=== PATIENT | male | born 2000 | race African-American/Black ===

== ENCOUNTER 2023-02-27 18:48 | Emergency (ER) | payer OTHER, SELFPAY ==
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
--- NOTE | 2023-02-27 18:59 | ECG_ITS ---
Measurements Intervals [place] Rate: 68 P: 68 DC: 173 QRS: 81 QRSD: 99 T: 44 QT: 372 QTc: 396 Interpretive Statements SINUS RHYTHM POSSIBLE LEFT ATRIAL ENLARGEMENT [-0.1mV P-WAVE IN V1/V2] NONSPECIFIC ST & T-WAVE ABNORMALITY ST-ELEVATION, LIKELY EARLY REPOLARIZATION ABNORMAL ECG NO PREVIOUS ECG AVAILABLE FOR COMPARISON Electronically Signed On 02-28-2023 9:28:33 CDT by Shaw Wright M.D.
[2023-02-27 19:11] VITALS: BP 157/60; PULSE 70; RESP 16; TEMP 36.9; O2SAT 99
[2023-02-27 19:13] LABS: Basophils Percent Auto 0.3 % (0.2-1.2); Eosinophils Absolute Auto 0.1 K/mm3 (0-0.3); Eosinophils Percent Auto 2.4 % (0-4.4); Hematocrit 42.4 % (42.0-52.0); Hemoglobin 14.9 g/dL (14.0-18.0); Immature Granulocyte Absolute 0.01 K/mm3 (0.00-0.031); Immature Granulocyte Percent A 0.2 % (0-0.5); Lymphocytes Absolute Auto 0.99 K/mm3 (0.9-3.2); Lymphocytes Percent Auto 16.8 % (18.3-44.2); Mean Corpuscular HGB Conc 35.1 g/dl (32-36); Mean Corpuscular Hemoglobin 31.3 pg (26-34); Mean Corpuscular Volume 89.1 fl (80-100); Mean Platelet Volume 10.7 fl (7.4-10.4); Monocytes Absolute Auto 0.6 K/mm3 (0.1-0.6); Monocytes Percent Auto 9.9 % (2.6-8.5); Neutrophils Absolute Auto 4.1 K/mm3 (1.3-6.7); Neutrophils Percent Auto 70.4 % (45.5-73.1); Platelet Count Result 228 k/mm3 (150-375); Red Blood Count 4.76 M/mm3 (4.6-6.20); Red Cell Distribution Width 11.4 % (11.5-14.5); White Blood Count 5.9 K/mm3 (4.5-10.0)
[2023-02-27 19:23] LABS: INR 1.2; Prothrombin Time 15.9 Seconds (11.1-14.7)
[2023-02-27 19:24] LABS: Partial Thromboplastin Time 38.1 SECONDS (22.3-36.8)
[2023-02-27 19:35] LABS: Alanine Aminotransferase 22 U/L (6-50); Albumin Level 4.1 g/dL (3.5-5.1); Alkaline Phosphatase 61 U/L (38-126); Anion Gap 8 mmol/L (8-16); Aspartate Amino Transferase 20 U/L (17-59); Bilirubin,Total 0.9 mg/dL (0.2-1.3); Blood Urea Nitrogen 15 mg/dL (9-20); Calcium 8.8 mg/dL (8.4-10.2); Carbon Dioxide 25 mmol/L (22-30); Chloride 104 mmol/L (98-107); Estimated CRCL calculation 121 ml/min; Estimated Glomerular Filt Rate > 60; Glucose 114 mg/dL (65-110); Lipase 67 U/L (23-300); Potassium 3.5 mmol/L (3.4-5.0); Sodium 137 mmol/L (137-145)
[2023-02-27 19:55] LABS: Troponin I < 0.012 ng/mL (0.000-0.034)
[2023-02-27 21:23] VITALS: O2SAT 100
--- NOTE | 2023-02-27 22:04 | ED.CHESTPAIN ---
HPI - Chest Pain General Chief Complaint: Upper Respiratory Infection Stated Complaint: Chest pain/ sore throat Time Seen by Provider: 02/27/23 21:40 History of Present Illness HPI narrative: 22-year-old male present to the emergency department for evaluation of substernal chest pain. Patient reports at approximate 5:00 he had onset of sternal chest pain. Patient states he did have some associated shortness of breath. Patient states that he had no radiation of the pain to his neck or back. Patient states pain has improved. Patient does have hypertension and does take multiple medications for this. Related Data Allergies Allergy/AdvReac Type Severity Reaction Status Date / Time grass pollen Allergy Itching Verified 02/27/23 21:28 pollen extracts Allergy Itching Verified 02/27/23 21:28 Review of Systems Review of Systems: All systems reviewed & are unremarkable except as noted in HPI and below Exam Narrative: APPEARANCE: Well appearing, no pain, no distress, well-nourished. HEAD: normocephalic, atraumatic. EYES: PERRLA/EOMI, conjunctivae clear. NOSE: Normal no drainage NECK: Supple. No adenopathy, no masses. RESPIRATORY: Airway patent, respirations nonlabored. Clear to auscultation bilaterally, no rales, rhonchi, wheezing. CARDIOVASCULAR: Regular rate and rhythm without murmurs rubs or gallops. ABDOMINAL: Soft, nontender, nondistended, normal bowel sounds MUSCULOSKELETAL: Moves all extremities. Strength/ROM intact, No edema, No calf tenderness. Reproducible right sternal border tenderness to palpation NEURO: Alert. Cranial nerves II through XII intact. SKIN: Warm, dry. Normal Color Course Course Emergency Course: 22-year-old male present emergency department for evaluation of chest pain. Patient was afebrile with no leukocytosis and a stable hemoglobin. Patient had no significant abnormalities on his CMP and patient had negative serial troponins. Patient was positive for COVID. Patient had a negative D-dimer. Chest x-ray showed no acute cardiopulmonary abnormality. EKG showed no evidence of acute STEMI. Patient did feel improved with treatment. Patient was updated the results of his work-up. Low concern for pulm embolism or ACS. Suspect costochondritis versus pleurisy as the underlying etiology for the patient's pain. All questions concerns were addressed and patient was comfortable with the plan for discharge and close follow-up. Vital Signs Vital signs: Vital Signs Temperature 98.4 F 02/27/23 19:11 Pulse Rate 70 02/27/23 19:11 Respiratory Rate 16 02/27/23 19:11 Blood Pressure 157/60 H 02/27/23 19:11 Pulse Oximetry 99 02/27/23 19:11 Temperature 98.4 F 02/27/23 19:11 Pulse Rate 76 02/28/23 00:40 Respiratory Rate 22 H 02/28/23 00:40 Blood Pressure 140/81 02/28/23 00:40 Pulse Oximetry 100 02/28/23 00:40 Oxygen Delivery Room Air 02/27/23 21:23 MDM - Chest Pain Differential Diagnosis Differential diagnosis: Likely pneumothorax, atypical chest pain, costochondritis and chest pain Lab Data Attestation: I reviewed the patient's lab results. 02/27/23 19:07 02/27/23 19:07 Labs: Lab Results 02/27/23 02/27/23 02/27/23 Range/Units 19:07 22:23 22:32 WBC 5.9 (4.5-10.0) K/mm3 RBC 4.76 (4.6-6.20) M/mm3 Hgb 14.9 (14.0-18.0) g/dL Hct 42.4 (42.0-52.0) % MCV 89.1 (80-100) fl MCH 31.3 (26-34) pg MCHC 35.1 (32-36) g/dl RDW 11.4 L (11.5-14.5) % Plt Count 228 (150-375) k/mm3 MPV 10.7 H (7.4-10.4) fl Immature Gran % (Auto) 0.2 (0-0.5) % Neut % (Auto) 70.4 (45.5-73.1) % Lymph % (Auto) 16.8 L (18.3-44.2) % [place] % (Auto) 9.9 H (2.6-8.5) % Eos % (Auto) 2.4 (0-4.4) % Baso % (Auto) 0.3 (0.2-1.2) % Lymph # (Auto) 0.99 (0.9-3.2) K/mm3 [place] # (Auto) 0.6 (0.1-0.6) K/mm3 Eos # (Auto) 0.1 (0-0.3) K/mm3 Baso # (Auto) 0.0 (0.0-0.1) K/mm3 Abs Immat Gran (auto)
[2023-02-27] MEDS: KETOROLAC 15 MG/ML VIAL (*BKC) IV PUSH (22:31)
[2023-02-27 23:03] LABS: Strep Group A RT-PCR NOT DETECTED (Negative)
[2023-02-27 23:07] LABS: D Dimer < 0.27 ug/mL (<0.48)
[2023-02-27 23:14] LABS: Influenza A QL RT-PCR Negative (Negative); Influenza B QL RT-PCR Negative (Negative); RSV RNA, RT-PCR Negative (Negative); SARS-CoV-2 RNA PCR Positive (Negative)
[2023-02-27 23:51] LABS: Troponin I < 0.012 ng/mL (0.000-0.034)
[2023-02-28 00:40] VITALS: BP 140/81; PULSE 76; RESP 22; O2SAT 100
== END 2023-02-28 00:41 | disposition home or self-care (01) ==
PROVIDERS: Emergency Medicine; Emergency Provider Emergency Medicine
DX: U07.1 COVID-19 (principal); R07.2 Precordial pain; R94.31 Abnormal electrocardiogram [ECG] [EKG]
CPT/HCPCS: 36415; 71046; 80053; 83690; 84484; 85025; 85380; 85610; 85730; 87637; 87651; 93005; 96374; 99284; J1885

== ENCOUNTER 2023-10-04 18:25 | Emergency (ER) | payer OTHER, SELFPAY ==
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
[2023-10-04 18:30] VITALS: BP 152/74; PULSE 68; RESP 16; TEMP 36.6; O2SAT 98
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
== END 2023-10-04 20:28 | disposition home or self-care (01) ==
PROVIDERS: Emergency Provider Physician Assistant
DX: S20.211A Contusion of right front wall of thorax, initial encounter (principal); V43.52XA Car driver injured in collision with other type car in traffic accident, initial encounter
CPT/HCPCS: 71046; 99283

== ENCOUNTER 2024-07-31 00:31 | Emergency (ER) | payer OTHER, SELFPAY ==
--- NOTE | ~2024-07-31 | XR_ITS ---
Portable chest x-ray Comparison: 10/04/2023 Clinical History: Chest pain Findings: Lungs are clear, without focal consolidation or pleural effusion. Cardiomediastinal silho uette is stable. Bones and soft tissues are unremarkable. Impression: Normal chest Reviewed, dictated and finalized at [facility]. Impression: Normal chest
--- NOTE | ~2024-07-31 | CT_ITS ---
CT of the Abdomen and Pelvis: Indication: Abdominal pain Technique: 2.5 mm axial scans were obtained through the abdomen and pelvis following intravenous adm inistration of 100 cc of Omnipaque 350. Dose reduction technique was used on this scan by utilizing a utomated exposure control and iterative reconstruction technique. The dose-length product (DLP) was 7 31.95 mGy-cm. Findings: Scans through the lung bases are unremarkable. The liver, spleen, pancreas, gallbladder, adrenals and kidneys are within normal limits. No evidence of aortic aneurysm. No lymphadenopathy. No bowel obstruction or bowel wall thickening. There is no evidence to suggest acute appendicitis. Images through the pelvis were performed. Urinary bladder unremarkable. No pelvic mass seen. No ascit es. Impression: No significant abnormalities seen. Reviewed, dictated and finalized at location . Impression: No significant abnormalities seen.
--- NOTE | 2024-07-31 00:32 | ECG_ITS ---
Test Date: 2024-07-31 00:45:50 Measurements Intervals [place] Rate: 78 P: 54 GA: 199 QRS: 70 QRSD: 96 T: 29 QT: 340 QTc: 390 Interpretive Statements SINUS RHYTHM WITH SINUS ARRHYTHMIA NONSPECIFIC T-WAVE ABNORMALITY No previous ECG available for comparison Electronically Signed On 07-31-2024 14:49:43 CDT by Paul Jones M.D.
--- OUTSIDE RECORDS SUMMARY | 2024-07-31 00:34 | XMS_ITS | Clinical Summary ---
Author Organization [facility] Address [facility] [address] [place] [address] Care Team Providers Care Floor Installation Mechanic Name Role Phone None, Provider MD Primary Care Provider Unavaila ble Allergies Active Allergy Reactions Criticality Noted Date Comments Cephalexin Hives,Throat swelling 12/23/2020 Medications amLODIPine 10 MG tablet Take 10 mg by mouth daily. 08/02/2020 Active lisinopril 5 MG tablet TAKE 1 TABLET BY MOUTH EVERY DAY FOR 20 DAYS 05/29/2020 Active methocarbamol 750 MG Tab Take 1 tablet (750 mg total) by mouth 3 (three) times daily as needed. 21 tablet 11/23/2021 Active diclofenac EC 75 MG tablet Take 1 tablet (75 mg total) by mouth 2 (two) times daily. 28 tablet 11/23/2021 Active lidocaine 5 % Place 1 patch onto the skin daily. Remove & Discard patch within 12 hours or as directed by 14 patch 11/23/2021 Active Active Problems No known active problems Immunizations Name Administration Dates Next Due Tdap (Boostrix) 10/23/2021 Family History Medical History Relation Comments Anxiety Father Cancer Mother Heart Disease Mother Kidney Disease Mother Relation Status Comments Father Alive Mother Social History Tobacco Use Types Packs/Day Years Used Date Smoking Tobacco: Never Smokeless Tobacco: Never Alcohol Use Standard Drinks/Week Comments No 0 (1 standard drink = 0.6 oz pur e alcohol) AUDIT-C Answer Date Recorded Frequency of Alcohol Consumption Never 12/28/2018 Average Number of Drinks Not on file 019 Frequency of Binge Drinking Not on file 12/2018 Sex and Gender Information Value Date Recorded Sex Assigned at Not on file Legal Sex Male 6:57 PM CDT Gender Identity Not on file Sexual Orientation Not on file Last Filed Vital Signs Vital Sign Reading Time Taken Comments Blood Pressure 157/62 11/29/2022 2:00 AM CDT Pulse 72 11/29/2022 2:00 AM CDT Temperature 36.9 C (98.5 F) 11/29/2022 2:00 AM CDT Respiratory Rate 18 11/29/2022 2:00 AM CDT Oxygen Saturation 99% 11/29/2022 2:00 AM CDT Inhaled Oxygen Concentration - - Weight 79.2 kg (174 lb 9.7 oz) 11/29/2022 2:00 A M CDT Height 180.3 cm (5' 11 ) 11/29/2022 2:00 AM CDT Body Mass Index 24.35 11/29/2022 2:00 AM CDT Plan of Treatment Health Maintenance Due Date Last Done Comments Annual Physical 2004 Hepatitis C 09/05/2019 COVID-19 Vaccine ( season) 2024 01/15/2021, 12/18/2020 Influenza Adult (#1) 2024 DTaP, Tdap and Td Vaccines (9 - Td or Tdap) 10/24/2031 10/23/2021, 09/03/2016, 10/24/2013, Additional history exists Hepatitis B Vaccines Completed 08/28/2004, 08/28/2004, 11/20/2002, Additional history exists HPV Vaccines Completed 01/23/2019, 12/21, 10/24/2013 Meningococcal Vaccine Completed 01/23/2019, 018 Meningococcal B Vaccine Completed 04/22/2020, 03/17 Pneumococcal Vaccine: Pediatrics (0 to 5 Years) and At-Risk Patients (6 to 64 Years) Aged Out No longer eligible based on patient's age to complete this topic RSV Immunizations Under 20 Months Aged Out No longer eligible based on patient's age to complete this topic Insurance [facility] YANCEY YANCEY Advance Directives Documents on File Type Date Recorded Patient Medical Assistant Per Diem Expl anation Legal Documents 04/30/2022 3:33 PM COMPLET ED ATTNY REQ Care Teams Floor Installation Mechanic Relationship Specialty Start Date End Date None, Provider, PCP - General 02/28/22
--- OUTSIDE RECORDS SUMMARY | 2024-07-31 00:34 | XMS_ITS | Clinical Summary ---
Author Organization [facility] Address [address] [place] [address] Care Team Providers Care Carpenter And Joiner Name Role Phone Lashawn Cheung MD Unavailable [phone] Mony Kilpatrick MD Primary Care Provider [phone] Source Comments [facility],non-owned Affiliates and Associated Physician Practices is amultiple site organization consisting of ambulatory clinics and hospital sitesin [place], [place], [place] and [place]. This disclosure is being madepursuant to the Care Everywhere program and may not contain all information available regarding this patient. Last updated 18.[facility] Allergies No known active allergies Medications * Be aware that medications may not be up to date on this document. Alwaysverify current medications with the patient. Medication Sig Dispensed Refills Start Date End Date Status acetaminophen (TYLENOL) 325 MG tablet Take 500 mg by mouth every 4 hours as needed for Fever or Pain Maximum allowable Acetaminophen amount = 4 Grams (4000 mg) / 24 hours. Active naproxen sodium (ALEVE) 220 MG tablet Take 220 mg by mouth 2 times daily Active amLODIPine (NORVASC) 10 MG tablet Take 10 mg by mouth once daily 06/13/2020 Active Active Problems Problem Noted Date Diagnosed Date Well child check 01/23/2019 Overview (01/23/2019): 18 yo 01/23/19 Patient's mother is 01/23/2019 Overview (01/23/2019): 01/23/19 - Recently of brain aneurysm, hx of cysts on kidney. Referral placed to Nephrology for evaluation of polycystic kidney disease Seasonal allergies Overview (01/23/2019): Benadryl prn Immunizations Name Administration Dates Next Due DTP 02/15/2007, 6,08/28/2004,11/20,01/18/2002,2001 HEP A PEDS 2 DOSE 12/14/2017,10/24/2013 HEP B VACCINE, PED/ADOL 08/28/2004,11/20,2001,09/05 HIB-PRP-T 4 DOSE 08/28/2004,01/18/2002, 2 Human Papilloma Virus Nine[place] lent Vaccine 01/23/2019 Human Papilloma Virus Vaccine 01/02/2014, 014 MENINGOCOCAL MENINGITIS 12/14/2017 MENINGOCOCCAL CONJUGATE (MCV4P) 01/23/2019 MMR 12/09/2005,08/28/2004 MMRV 02/15/2007 POLIO IPV 02/15/2007, 6,08/28/2004,11/20,01/18/2002,2001 TDAP (7yrs+) 09/03/2016,10/24/2013 VARICELLA 01/02/2017,03/19/2005 Family History Medical History Relation Name Comments Other Mother brain aneurysm Other - Genitourinary Mother cysts on kidney Relation Name Status Comments Mother Social History Tobacco Use Types Packs/Day Years Used Date Smoking Tobacco: Never Smokeless Tobacco: Never Alcohol Use Standard Drinks/Week Comments No 0 (1 standard drink = 0.6 oz pur e alcohol) Sex and Gender Information Value Date Recorded Sex Assigned at Not on file Gender Identity Not on file Sexual Orientation Not on file Last Filed Vital Signs Vital Sign Reading Time Taken Comments Blood Pressure 144/80 07/10/2020 8:48 AM CREATIVE COORDINATOR Pulse 60 07/10/2020 8:48 AM CREATIVE COORDINATOR Temperature 36.5 C (97.7 F) 07/10/2020 8:48 AM CREATIVE COORDINATOR Respiratory Rate 14 07/18/2019 10:45 AM CREATIVE COORDINATOR Oxygen Saturation 100% 07/10/2020 8:48 AM CREATIVE COORDINATOR Inhaled Oxygen Concentration - - Weight 82.1 kg (181 lb) 07/10/2020 8:48 AM CREATIVE COORDINATOR Height 185.4 cm (6' 1 ) 07/10/2020 8:48 AM CREATIVE COORDINATOR Body Mass Index 23.88 07/10/2020 8:48 AM CREATIVE COORDINATOR Plan of Treatment Health Maintenance Due Date Last Done Comments HIV SCREENING 2016 MENINGOCOCCAL (Group B) VACCINE (1 of 2 - Standard) 2017 HEPATITIS C SCREENING 08/31/2019 COVID-19 VACCINE ( - 2023- season) 2024 INFLUENZA VACCINE (#1) 2024 DEPRESSION SCREENING 05/23/2024 DTAP/TDAP/TD VACCINES (8 - Td or Tdap) 09/03/2026 09/03/2016, 10/24/2013, 02/15/2007, Additional history exists ZOSTER VACCINE (1 of 2) 09/05/2051 HEPATITIS B VACCINE Completed 08/28/2004, 11/20/2002, 2001, Additional history exists HIB VACCINE Completed 08/28/2004, 12/22, 2001 HPV VACCINE Completed 01/23/2019, 12/21, 10/24/2013 MENINGOCOCCAL VACCINE Completed 01/23/2019, 018 PNEUMOCOCCAL VACCINE Aged Out No long er eligible based on patient's age to complete this topic Goals Goal Patient Goal Type Associated Problems Recent Progress Patient-Stated? Author Use safety retraint in car Lifestyle On track( 019 8:46 AM CDT) Marcia Cota MA Care Teams Carpenter And Joiner Relationship Specialty Start Date End Date Mony Kilpatrick MD [address] [place] [phone] PCP - General 09/29/20 Lashawn Cheung MD [address] [place] [phone] Pediatrics 01/23/19
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
--- OUTSIDE RECORDS SUMMARY | 2024-07-31 00:34 | XMS_ITS | Referral Summary ---
Author Organization [facility] Address [address] [place] [address] Care Team Providers Care Head Machinist Name Role Phone Lashawn Cheung MD Unavailable [phone] Mony Kilpatrick MD Primary Care Provider [phone] Source Comments [facility],non-owned Affiliates and Associated Physician Practices is amultiple site organization consisting of ambulatory clinics and hospital sitesin [place], [place], [place] and [place]. This disclosure is being madepursuant to the Care Everywhere program and may not contain all information available regarding this patient. Last updated 18.[facility] Allergies No known active allergies Medications * [...] 02/15/2007, 6,08/28/2004,11/20,01/18/2002,2001 TDAP (7yrs+) 09/03/2016,10/24/2013 VARICELLA 01/02/2017,03/19/2005 Social History Tobacco Use Types Packs/Day Years [...] Comments Blood Pressure 144/80 07/10/2020 8:48 AM PAYLOADER MACHINE OPERATOR Pulse 60 07/10/2020 8:48 AM PAYLOADER MACHINE OPERATOR Temperature 36.5 C (97.7 F) 07/10/2020 8:48 AM PAYLOADER MACHINE OPERATOR Respiratory Rate 14 07/18/2019 10:45 AM PAYLOADER MACHINE OPERATOR Oxygen Saturation 100% 07/10/2020 8:48 AM PAYLOADER MACHINE OPERATOR Inhaled Oxygen Concentration - - Weight 82.1 kg (181 lb) 07/10/2020 8:48 AM PAYLOADER MACHINE OPERATOR Height 185.4 cm (6' 1 ) 07/10/2020 8:48 AM PAYLOADER MACHINE OPERATOR Body Mass Index 23.88 07/10/2020 8:48 AM PAYLOADER MACHINE OPERATOR Plan of Treatment Not on file Goals Goal Patient Goal Type Associated Problems Recent Progress Patient-Stated? Author Use safety retraint in car Lifestyle On track( 019 8:46 AM CDT) Marcia Cota, QASIM Care Teams Head Machinist Relationship Specialty Start Date End Date Mony Kilpatrick MD [address] [place] [address] PCP - General 09/29/20 Lashawn Cheung MD [address] [place] [address] Pediatrics 01/23/19
--- OUTSIDE RECORDS SUMMARY | 2024-07-31 00:34 | XMS_ITS | Data Portability ---
Author Organization [facility] Address [address] [place] [address] Care Team Providers Care Title Processor Name Role Phone YENI PRADHAN Primary Care Provider RENARD MULLIGAN Night Clerk Auditor JEREMY FREGOSO Night Clerk Auditor Assessment Encounter Date Assessment Date Assessment LastModified by Organization Details LastModified Time 01/24/2024 01/24/2024 23 yo M with h/o HTN, strong family h/o PCKD in his mother is here for HTN f/u with medication change. [email or web address] Not available 01/26/2024 10:21:19 03/13/2024 03/13/2024 23-year-old damon silverio who has a history of hypertension doing very well. He has no symptoms of chest pain and shortness of breath. He is tolerating all his medications. Blood pressure is in acceptable range. I will check a basic metabolic profile today and repeat again in 6 months. I reminded him about the importance of controlling his blood pressure explained him the risks associated with uncontrolled high blood pressure. He understands. I will see him in 6 months. March 13, 2024: Hypertension, blood pressure is well-controlled I will continue with amlodipine 10 mg daily along with hydrochlorothiazide 25 mg a day and losartan 100 mg p.o. daily. I will check a basic metabolic profile. I will see him again in 6 months. [email or web address] Not available 03/13/2024 10:28:00 05/07/2024 05/07/2024 23 yo M with h/o HTN, strong family h/o PCKD in his mother is here for HTN f/u [email or web address] Not available 05/09/2024 14:56:57 Plan of Treatment Reminders Order Date Submit Date Provider Last Modified By Organization Details Last Modified Time Details Appointments ANY 15 2024 09:15A M Leobardo sullivan MD Not available Not available Not available Lab microa lbumin /creat inine, mass ratio, urine 2023 024 jilalexa [facility], [address], [address], [place], [address], 07/17/2024 14:34:24 BMP, serum or plasma 2023 025 benjamin [facility], [address], [address], [place], [address], 03/13/2024 10:22:36 Referral None record ed. Procedures None record ed. Surgeries None record ed. Imaging None record ed. Medication Orders amlodi pine 10 mg tablet 2023 024 [facility]armacy #[id number], [address] [place], [address], 05/07/2024 17:58:18 hydroc hlorot hiazid e 25 mg tablet 2023 024 [facility]/Pharmacy #[id number], [address] [place], [address], 12/19/2023 17:10:29 losart an 100 mg tablet 2023 024 [facility]/Pharmacy #[id number], [address] [place], [address], 05/07/2024 17:58:14 Patient TargetsNo targets recorded. Patient Instructions Encounter Date Encounter Id Patient Instructions Last Modified By Organization Details Last Modified Time 12/02/2023 [id number] I was present and available in the family medicine clinic to discuss the patient's care during the appointment and the case was discussed with me. I agree with the resident's assessment and plan as documented. Records were located after visit and imaging suggests no significant YOBANI 06/2023 . Not clear if pt needs reeval for 2/2 HTN or reassess risks for essential HTN and education about treatment. HL [email or web address] Not available 12/08/2023 21:59:25 12/19/2023 [id number] I was present and available in the Family Medicine clinic to discuss the patient's care during the time of the appointment. All labs/imaging/con sults/prescripti ons to be followed by the resident rendering services on day of encounter. I agree with the resident's assessment and plan as documented with the following addendum: None. Emery Svitlana [email or web address] Not available 12/23/2023 15:04:54 01/24/2024 [id number] I was present and available in the Family Medicine clinic to discuss this patient's care for the duration of the appointment. I agree with the resident's assessment and plan as documented with the following addendum: Reviewed records, including the CTA of abdomen pelvis in 06/29/2023, which was clinically negative for any signs of renal artery stenosis. Recommend f/u with nephrology and cardiology. Dr. Jamir Torres MD Attending Physician, [facility]. [email or web address] Not available 01/31/2024 11:27:06 05/07/2024 [id number] I was present and available in the family medicine clinic to discuss the patient's care during the appointment and the case was discussed with me. I agree with the resident's assessment and plan as documented. HL [email or web address] Not available 05/15/2024 07:08:51 Reason for Referral None Reported. Results Created Date Observation Date Name Description Value Unit Range Abnormal Flag Note LastModifiedBy Organization Detail LastModifiedTime 03/13/2003/13/2024 BASIC METAB OLIC PANEL sodium 141 mmol/ L 134-14 4 normal Not Available [facility] (Lab) [address], [place], [address], 03/13/2024 21:32:41 03/13/2003/13/2024 BASIC METAB OLIC PANEL potassium 4.7 mmol/ L 3.5-5. 2 normal Not Available [facility] (Lab) [address] [place], [address], 03/13/2024 21:32:41 03/13/2003/13/2024 BASIC METAB OLIC PANEL chloride 105 mmol/ L 96-106 normal Not Available [facility] (Lab) [address] [place], [address], 03/13/2024 21:32:41 03/13/20 24 03/13/2024 BASIC METAB OLIC PANEL carbon dioxide 29 mmol/ L 20-29 normal Not Available [facility] (Lab) [address] [place], [address], 03/13/2024 21:32:41 03/13/20 24 03/13/2024 BASIC METAB OLIC PANEL anion gap 12.0 mmol/ L Not Available [facility] (Lab) [address] [place], [address], 03/13/2024 21:32:41 03/13/20 24 03/13/2024 BASIC METAB OLIC PANEL blood urea nitrogen 11 mg/dL 6-20 normal Not Available [facility] (Lab) [address] [place], [address], 03/13/2024 21:32:41 03/13/20 24 03/13/2024 BASIC METAB OLIC PANEL creatinine 0.81 mg/dL 0.76-1 .27 normal Not Available [facility] (Lab) [address] [place], [address], 03/13/2024 21:32:41 03/13/20 24 03/13/2024 BASIC METAB OLIC PANEL glomerular filtration rate 128 mL/mi n/1 Not Available [facility] (Lab) [address] [place], [address], 03/13/2024 21:32:41 03/13/20 24 03/13/2024 BASIC METAB OLIC PANEL BUN creatinine ratio 14 9-20 normal Not Available [facility] (Lab) [address], [place], [address], 03/13/2024 21:32:41 03/13/2003/13/2024 BASIC METAB OLIC PANEL glucose 96 mg/dL 70-99 normal Not Available [facility] (Lab) [address] [facility], [place], [address], 03/13/2024 21:32:41 03/13/2003/13/2024 BASIC METAB OLIC PANEL osmolality calculated 281 275-29 5 normal Not Available [facility] (Lab) [address] [facility], [place], [address], 03/13/2024 21:32:41 03/13/2003/13/2024 BASIC METAB OLIC PANEL calcium 9.9 mg/dL 8.7-10 .2 normal Not Available [facility] (Lab) [address] [facility], [place], [address], 03/13/2024 21:32:41 Result Notes None recorded. Problems Name Problem SNOMED Code Status Onset Date Resolution Date Notes Provider Name and Address Organization Details Recorded Time Hypertens arnoldo disorder 30377484 Active 2019 Monystar Camachoqui null, [place] [facility] 0 16:27:27 Stenosis of left renal artery 128112109109 97402 Active 2020 Jatinder Neftaly null, [place] [facility] 2 10:07:34 Family history of Polycysti c kidney 280355034 Active [address]23 [address] Villareal nephrolog y in 2020 due to strong family h/o PCKD and US kidney was normal. JAMIR Antunez MD Attn: [employer],[address], [place], [address], [place] [facility] 4 10:29:44 Essential hypertens ion 43156394 Active 2023 Roque Kennedy MA null, [place] [facility] 4 11:45:02 Problem Notes None recorded. Procedures Surgical History Date Name Laterality Status Provider Name and Address Organization Details Recorded Time 05/17/2023 Shave Biopsy completed YENI PRADHAN DO Attn: Accounting,[address], [place], [address], [facility] 05/18/2023 16:43:41 Imaging Results None recorded. Procedure Notes None recorded. Medical Equipment None Reported. Allergies Allergen ID Allergen Name Allergen Category Reaction Reaction Severity Criticality Documentation Date Start Date Code Code System Note Provider Name and Address Organization Details Recorded Time 594111 cephalexi n medicatio n anaphylax is severe high 09/09/2021 2231 RxNorm Not Available Not Available Not Available 294969 Substance with sulfonami de structure and antibacte rial mechanism of action (substanc e) medicatio n rash moderate Not available 09/09/2021 55833 8003 SNOMED Not Available Not Available Not Available Medications Name Sig Start Date Stop Date Status Note LastModified by Organization Details LastModified Time losartan 50 mg tablet TAKE 1 TABLET BY MOUTH EVERY DAY 09/05 completed Not Available Not Available Not Available amoxicillin 500 mg capsule TAKE 1 CAPSULE BY MOUTH TWICE A DAY 08/10 completed Not Available Not Available Not Available clindamycin HCl 300 mg capsule TAKE 1 CAPSULE BY MOUTH THREE TIMES A DAY 01/12 completed Not Available Not Available Not Available ibuprofen 800 mg tablet 07/22 completed Not Available Not Available Not Available fluconazole 150 mg tablet TAKE 1 TABLET BY MOUTH FOR ONE DOSE 09/09 completed Not Available Not Available Not Available hydrocodone 5 mg-acetamin ophen 325 mg tablet TAKE 1 TABLET BY MOUTH EVERY 6 HOURS NEEDED FOR PAIN 09/09 completed Not Available Not Available Not Available sulfamethox azole 800 mg-trimetho prim 160 mg tablet TAKE 1 TABLET BY MOUTH TWICE A DAY 08/10 completed Not Available Not Available Not Available tramadol 50 mg tablet TAKE 0.5 TABLETS EVERY 8 HOURS BY ORAL ROUTE NEEDED FOR 7 DAYS. 03/13 completed Not Available Not Available Not Available acetaminoph en 500 mg tablet TAKE 2 TABLETS BY MOUTH EVERY 8 HOURS NEEDED FOR PAIN 09/09 completed Not Available Not Available Not Available methocarbam ol 750 mg tablet TAKE 1 TABLET BY MOUTH 3 TIMES DAILY NEEDED. 01/12 completed Not Available Not Available Not Available amlodipine 10 mg tablet TAKE 1 TABLET BY MOUTH EVERY DAY 05/07 completed Not Available Not Available Not Available cephalexin 500 mg capsule TAKE 1 CAPSULE BY MOUTH 4 TIMES A DAY FOR 7 DAYS 09/09 completed Not Available Not Available Not Available triamcinolo ne acetonide 0.1 % topical ointment 1 APPLICATI ON ON THE SKIN TWICE A DAY APPLY TO AFFECTED AREA ON RIGHT THIGH TWICE DAILY FOR 7 DAYS 09/09 completed Not Available Not Available Not Available lidocaine 5 % topical patch PLACE 1 PATCH ONTO THE SKIN DAILY. REMOVE & DISCARD PATCH WITHIN 12 HOURS OR DIRECTED BY MD 08/10 completed Not Available Not Available Not Available losartan 25 mg tablet TAKE 1 TABLET BY MOUTH EVERY DAY 01/12 completed Not Available Not Available Not Available hydrochloro thiazide 12.5 mg capsule TAKE 1 CAPSULE BY MOUTH EVERY DAY 01/23 completed Not Available Not Available Not Available Banophen 25 mg capsule TAKE 1 CAPSULE BY MOUTH EVERY 4 HOURS 01/12 completed Not Available Not Available Not Available diclofenac sodium 75 mg tablet,edie yed release TAKE 1 TABLET BY MOUTH TWICE A DAY 01/12 completed Not Available Not Available Not Available lisinopril 5 mg tablet TAKE 1 TABLET BY MOUTH EVERY DAY FOR 20 DAYS 07/22 completed Not Available Not Available Not Available hydrochloro thiazide 25 mg tablet TAKE 1 TABLET BY MOUTH EVERY DAY active Not Available Not Available No t Available mupirocin 2 % topical ointment APPLY TO AFFECTED AREA 3 TIMES A DAY FOR 7 DAYS 09/05 completed Not Available Not Available Not Available levofloxaci n 500 mg tablet 07/22 completed Not Available Not Available Not Available methylpredn isolone 4 mg tablets in a dose pack TAKE 6 TABLETS ON DAY 1 DIRECTED ON PACKAGE AND DECREASE BY 1 TAB EACH DAY FOR A TOTAL OF 6 DAYS 09/09 completed Not Available Not Available Not Available ketoconazol e 2 % topical cream APPLY TO AFFECTED AREA EVERY DAY 09/09 completed Not Available Not Available Not Available losartan 100 mg tablet Take 1 tablet every day by oral route. 05/07 completed Not Available Not Available Not Available amoxicillin 875 mg-potassiu m clavulanate 125 mg tablet TAKE 1 TABLET (875 MG TOTAL) BY MOUTH 2 (TWO) TIMES DAILY FOR 7 DAYS. 09/09 completed Not Available Not Available Not Available azithromyci n 1 gram oral packet TAKE 1 PACKET BY ORAL ROUTE FOR 1 DAY. 09/05 completed Not Available Not Available Not Available hydrocortis one 1 % topical cream with perineal applicator APPLY TO AFFECTED AREA TWICE A DAY 09/09 completed Not Available Not Available Not Available cyclobenzap rine 5 mg tablet TAKE 1 TABLET 3 TIMES A DAY BY ORAL ROUTE. 10/10 completed Not Available Not Available Not Available tretinoin 0.05 % topical gel APPLY TO AFFECTED AREA EVERY DAY AT BEDTIME 09/05 completed Not Available Not Available Not Available Acne Medication 5 % topical gel APPLY TO AFFECTED AREA EVERY DAY 09/05 completed Not Available Not Available Not Available tramadol 25 mg tablet active Not Available Not Available No t Available Vitals Date Recorded Body height Body mass index (BMI) Body weight Heart rate Oxygen saturation Oxygen saturation in Arterial blood by Pulse oximetry Body temperature Systolic blood pressure Diastolic blood pressure Provider Name and Address Organization Details Last Updated DateTime 4 180.34 cm 27.2 kg/m2 99344.6 1 g 62 /min 98 % 98 % 97.6 [degF] 152 mm[Hg] 99 mm[Hg] Michelle Moss MA [facility] 4 16:37:05 Date Recorded Systolic blood pressure Diastolic blood pressure Provider Name and Address Organization Details Last Updated DateTime 12/02/2023 152 mm[Hg] 96 mm[Hg] YENI PRADHAN DO Attn: Accounting,[address] [place], [address], [facility] 12/02/2023 17:13:03 Date Recorded Body height Heart rate Oxygen saturation Oxygen saturation in Arterial blood by Pulse oximetry Body mass index (BMI) Body weight Body temperature Systolic blood pressure Diastolic blood pressure Provider Name and Address Organization Details Last Updated DateTime 4 180.34 cm 87 /min 97 % 97 % 28.2 kg/m2 44181.7 1 g 97.7 [degF] 145 mm[Hg] 71 mm[Hg] Michelle Moss MA [facility] 4 16:32:48 Date Recorded Body height Body mass index (BMI) Body weight Oxygen saturation Oxygen saturation in Arterial blood by Pulse oximetry Heart rate Systolic blood pressure Diastolic blood pressure Provider Name and Address Organization Details Last Updated DateTime 4 180.34 cm 27.4 kg/m2 92750.2 5 g 96 % 96 % 65 /min 166 mm[Hg] 82 mm[Hg] Cris Linda MA [facility] 4 11:21:10 Date Recorded Systolic blood pressure Diastolic blood pressure Provider Name and Address Organization Details Last Updated DateTime 01/24/2024 137 mm[Hg] 79 mm[Hg] Javed Lawler MD Attn: Accounting,[address] [place], [address], [facility] 01/24/2024 11:53:23 Date Recorded Body height Body mass index (BMI) Body weight Oxygen saturation Oxygen saturation in Arterial blood by Pulse oximetry Heart rate Systolic blood pressure Diastolic blood pressure Provider Name and Address Organization Details Last Updated DateTime 4 180.34 cm 28.8 kg/m2 79334.8 2 g 97 % 97 % 82 /min 132 mm[Hg] 84 mm[Hg] Mayte Reyna MA [facility] 4 10:14:17 Date Recorded Body height Body temperature Body mass index (BMI) Body weight Oxygen saturation Oxygen saturation in Arterial blood by Pulse oximetry Heart rate Systolic blood pressure Diastolic blood pressure Provider Name and Address Organization Details Last Updated DateTime 4 180.34 cm 98.3 [degF] 28.2 kg/m2 12453.7 1 g 99 % 99 % 65 /min 154 mm[Hg] 85 mm[Hg] Fransico Ivory MA [facility] 4 17:32:29 Date Recorded Systolic blood pressure Diastolic blood pressure Provider Name and Address Organization Details Last Updated DateTime 05/07/2024 144 mm[Hg] 89 mm[Hg] Ronnell Conley MD Attn: Accounting[address] [place], [address], [facility] 05/07/2024 17:48:45 Social History Question Answer Notes LastModified by Organizat ion Details LastModified Time Tobacco Smoking Status Never Smoker Janet Jacome MA null, [place] [facility] 03/17/2020 16:07:54 What Is Your Level Of Alcohol Consumption? None [email or web address] Information not available 10/15/2021 Do You Or Have You Ever Used E-cigarettes Or Vape? Never Used Electronic Cigarettes Information not available 03/17/2020 What Was The Date Of Your Most Recent Tobacco Screening? 03/13/2024 Information not available 03/13/2024 Do You Or Have You Ever Used Smokeless Tobacco? Never Used Smokeless Tobacco Information not available 03/17/2020 Do You Use Any Illicit Or Recreational Drugs? No [email or web address] Information not available 07/25/2020 Has Tobacco Cessation Counseling Been Provided? No Information not available 03/13/2024 Do You Or Have You Ever Used Any Other Forms Of Tobacco Or Nicotine? No [email or web address] Information not available 09/09/2021 Sex: Unknown Functional Status None recorded. Mental Status None recorded. Family History Relationship Description Onset Age of this Age Resolved Age Notes LastModified by Organization Details LastModified Time Father Hypertensive disorder [email or web address] Not available 02/21 16:25:59 Mother Hypertensive disorder [email or web address] Not available 02/21 16:26:06 Medical History No medical history recorded. Immunizations Vaccine Type Date Status Note Provider Nam e and Address Organization Details Recorded Time DTaP, unspecified formulation 2 completed Pippa Pate [place], [place] [facility] 05/05/2022 11:42:58 DTaP 2 argelia Pate [place] [facility] 05/05/2022 11:43:37 DTaP, unspecified formulation 3 QASIM Wilhelm, [place] [facility] 05/05/2022 11:43:59 DTaP-Hep B-IPV 5 argelia Pate [place] [facility] 05/05/2022 11:44:36 DTaP 6 QASIM [place] [facility] 05/05/2022 12:36:38 DTaP 7 argelia Pate [place] [facility] 05/05/2022 12:37:26 Hib (PRP-T) 2 completed Pippa Pate [place] [facility] 05/05/2022 12:39:36 Hib (PRP-T) 2 completed Pippa P[place] [facility] 05/05/2022 12:40:11 Hib (PRP-T) 5 completed Pippa P[place] [facility] 05/05/2022 12:41:00 Hep A, ped/adol, 2 dose 4 completed Pippa P[place] [facility] 05/05/2022 12:42:26 Hep A, ped/adol, 2 dose 8 completed Pippa P[place] [facility] 05/05/2022 12:42:43 Hep B, adolescent or pediatric 2 completed Pippa P[place] [facility] 05/05/2022 12:43:30 Hep B, adolescent or pediatric 2 completed Pippa P[place] [facility] 05/05/2022 12:44:01 Hep B, adolescent or pediatric 3 completed Pippa P[place] [facility] 05/05/2022 12:44:30 HPV, quadrivalent 4 completed Pippa P[place] [facility] 05/05/2022 12:45:59 HPV, quadrivalent 4 completed Pippa P[place] [facility] 05/05/2022 12:46:36 HPV9 9 completed Pippa P[place] [facility] 05/05/2022 12:47:36 MMR 5 completed Pippa P[place] [facility] 05/05/2022 12:48:45 MMRV 7 completed Pippa P[place] [facility] 05/05/2022 12:49:37 meningococcal MCV4P 8 completed Pippa P[place] [facility] 05/05/2022 12:51:42 meningococcal MCV4P 9 completed Pippa P[place] [facility] 05/05/2022 12:52:37 IPV 2 completed Pippa P[place] [facility] 05/05/2022 12:53:34 IPV 2 completed Pippa P[place] [facility] 05/05/2022 12:53:53 IPV 3 completed Pippa P[place] [facility] 05/05/2022 12:54:57 IPV 6 completed Pippa P[place] [facility] 05/05/2022 12:55:43 IPV 7 completed Pippa P[place] [facility] 05/05/2022 12:56:29 Tdap 4 completed Pippa P[place] [facility] 05/05/2022 13:01:12 Tdap 7 argelia Pate [place] [facility] 05/05/2022 13:02:06 Tdap 2 completed Pippa P[place] [facility] 05/05/2022 13:03:03 varicella 5 completed Pippa P[place] [facility] 05/05/2022 13:03:44 varicella 4 completed Pippa P[place] [facility] 05/05/2022 13:06:24 varicella 7 argelia P[place] [facility] 05/05/2022 13:06:59 COVID-19, mRNA, LNP-S, bivalent, PF, 50 mcg/0.5 mL or 25mcg/0.25 mL dose 1 argelia P[place] [facility] 05/05/2022 13:08:04 COVID-19, mRNA, LNP-S, bivalent, PF, 50 mcg/0.5 mL or 25mcg/0.25 mL dose 1 completed Pippa P[place] [facility] 05/05/2022 13:08:40 meningococcal B, OMV 0 completed Pam Serna [place] [facility] 03/17/2020 17:10:49 meningococcal B, OMV 0 completed Pam Serna [place] [facility] 04/22/2020 12:25:46 Past Encounters Encounter ID Performer Location Encounter Start Date Encounter Closed Date Diagnosis/Indication Diagnosis SNOMED-CT Code Diagnosis ICD10 Code Diagnosis Note [id number] [facility] [address] [facility] [address] [place] [address] 03/17/2020 15:44:10 03/18/2020 10:35:27 Increased blood pressure 83609640 R03.0 BP 178/68 today.Per AAFP guidelines will evaluate for secondary causes of HTN including fibromuscu lar dysplasia of the renal artery, hyperaldos teronism, pheochromc ytoma, hyperthyro idism, obstructiv e sleep apnea, [place] syndrome (no cushingoid appearance ), -Check BMP, lipid panel, ACR, A1c, TSH EKG -BMI: 24.2 -Discussed lifestyle modificati on including recommende d diet and exercise -Smoking status: non-smoker -Discussed gender appropriat e alcohol consumptio n -Will initiate medication s once labs are reviewed Active or passive immunization 142058443 Z23 [id number] Mony Kilpatrick [facility] [address] [facility] [address] [place] [address] 04/22/2020 12:03:22 04/24/2020 09:59:45 Active or passive immunization 616952245 Z23 [id number] Annie Rubina [facility] [address] [facility] [address] [place] [address] 05/29/2020 15:14:06 05/30/2020 10:34:27 Renovascular hypertension 553527326 I15.0 Chronic, uncontroll edRenal U/S from 04/29/2020 notable for >60% stenosis of proximal renal artery.Con sistent with renovascul ar HTN (fibromusc ular dysplasia vs atheroscle rosis)- Referral to nephrology pending, phone number provided to patient and advised to contact clinic if he is not able to schedule an appointmen t- Will initiate treatment with lisinopril 5 mg for BP control- Follow-up in 2 weeks for BP check 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 Patient reports FH of renal cysts- Renal US ordered to rule out PKD [id number] Esau Dhillon MD [place] [address] [address] [address] 06/13/2020 11:43:34 06/16/2020 07:15:34 Renovascular hypertension 549033903 I15.0 Chronic, uncontroll edRenal U/S from 04/29/2020 notable for >60% stenosis of proximal renal artery.Con sistent with renovascul ar HTN (fibromusc ular dysplasia vs atheroscle rosis)- Referral to nephrology placed, appointmen t scheduled for August- SInce patient will be stented for a few months, will d/c lisinopril to avoid renal damage and initiate amlodipine - Follow-up in 2 weeks for BP check 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 [id number] 05923 Q61.00 Patient reports FH of renal cysts- Renal US ordered to rule out PKD [id number] Esau Dhillon MD [facility] [address] [address] 06/27/2020 14:26:35 06/30/2020 07:29:04 Renovascular hypertension 447169920 I15.0 Chronic, uncontroll edRenal U/S from 04/29/2020 notable for >60% stenosis of proximal renal artery.Con sistent with renovascul ar HTN (fibromusc ular dysplasia vs atheroscle rosis)- Referral to nephrology placed, appointmen t scheduled for 09/09/2020- Continue amlodipine 10 mg- f/u after nephrology work-up [id number] MD Anuj Molina [address] [facility] [address] [place] [address] 07/31/2020 17:02:14 08/05/2020 08:59:38 Hypertensive disorder 58491953 I10 Chronic, uncontroll ed Renal U/S from 04/29/2020 notable for >60% stenosis of proximal renal artery (per flow criteria) Consistent with renovascul ar HTN (fibromusc ular dysplasia vs atheroscle rosis) - Referral to nephrology placed, appointmen t scheduled for 09/09/2020 - Continue amlodipine 10 mg. Patient advised to take medication ONCE daily. - f/u after nephrology work-up Acne 40814449 L70.9 Chronic, uncontroll ed. Mild-moder ate papulopust ular facial acne- 1st line BPO (AM) + or topical retinoid (PM) ordered. Provided instructio ns of proper usage- Patient counseled on use of sunscreen- Will f/u in 12 weeks- Discussed management plan including risk/benef its. Pt voiced understand ing. All questions answered Sexually t ransmitted infectious disease [id number] A64 Will order STI testing [id number] [facility] ([facility]) [address] [place] [address] 09/09/2020 15:01:54 09/22/2020 07:25:56 Secondary hypertension [id number] I15.9 uncontroll ed add lo dose losartan and reval 24 hr urine for free cortisol 24 hr urine for vma and metanephri gin Stenosis o f left renal artery [id number] 4242316 I70.[address] keating [id number] MD Anuj Koo 47 3 [facility] [address] [place] [address] 11/17/2020 16:50:49 11/20/2020 12:20:10 Hypertensive disorder 98942073 I10 Chronic, uncontroll edBP 166/78 today. However, patient has not been on medication s since ~MayRenal U/S from 04/29/2020 notable for >60% stenosis of proximal left renal artery (per flow criteria)C onsistent with renovascul ar HTN (fibromusc ular dysplasia vs atheroscle rosis)- Nephro evaluated patient, started losartan 25 mg and referred to vascular surgery - no surgical interventi on recommende d at this time-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
--- OUTSIDE RECORDS SUMMARY | 2024-07-31 00:34 | XMS_ITS | Patient Health Summary ---
Author Organization [facility] Address [address] [place] [address] Care Team Providers Care Watch Dial Stoner Name Role Phone Lashawn Cheung MD Unavailable [phone] Mony Kilpatrick MD Primary Care Provider [phone] Note from [facility],non-owned Affiliates and Associated Physician Practices is amultiple site organization consisting of ambulatory clinics and hospital sitesin [place], [place], [place] and [place]. This disclosure is being madepursuant to the Care Everywhere program and may not contain all information available regarding this patient. Last updated 18.[facility] Allergies No known active allergies Medications * Be aware that medications may not be up to date on this document. Alwaysverify current medications with the patient. * acetaminophen (TYLENOL) 325 MG tablet Take 500 mg by mouth every 4 hours as needed for Fever or Pain Maximum allowable Acetaminophen amount = 4 Grams (4000 mg) / 24 hours. * naproxen sodium (ALEVE) 220 MG tablet Take 220 mg by mouth 2 times daily * amLODIPine (NORVASC) 10 MG tablet(Started 06/13/2020) Take 10 mg by mouth once daily Active Problems Problem Noted Date Diagnosed Date Well child check 01/23/2019 Patient's mother is 01/23/2019 Seasonal allergies Immunizations * DTP(Given 02/15/2007, 12/09/2005, 08/28/2004, 11/20/2002, 01/18/2002, 2001) * HEP A PEDS 2 DOSE(Given 12/14/2017, 10/24/2013) * HEP B VACCINE, PED/ADOL(Given 08/28/2004, 11/20/2002, 2001, 2001) * HIB-PRP-T 4 DOSE(Given 08/28/2004, 01/18/2002, 2001) * Human Papilloma Virus Ninevalent Vaccine(Given 01/23/2019) * Human Papilloma Virus Vaccine(Given 01/02/2014, 10/24/2013) * MENINGOCOCAL MENINGITIS(Given 12/14/2017) * MENINGOCOCCAL CONJUGATE (MCV4P)(Given 01/23/2019) * MMR(Given 12/09/2005, 08/28/2004) * MMRV(Given 02/15/2007) * POLIO IPV(Given 02/15/2007, 12/09/2005, 08/28/2004, 11/20/2002, 01/18/2002, 2001) * TDAP (7yrs+)(Given 09/03/2016, 10/24/2013) * VARICELLA(Given 01/02/2017, 03/19/2005) Social History Tobacco Use Types Packs/Day Years [...] Comments Blood Pressure 144/80 07/10/2020 8:48 AM [employer] Pulse 60 07/10/2020 8:48 AM [employer] Temperature 36.5 C (97.7 F) 07/10/2020 8:48 AM [employer] Respiratory Rate 14 07/18/2019 10:45 AM [employer] Oxygen Saturation 100% 07/10/2020 8:48 AM [employer] Inhaled Oxygen Concentration - - Weight 82.1 kg (181 lb) 07/10/2020 8:48 AM [employer] Height 185.4 cm (6' 1 ) 07/10/2020 8:48 AM [employer] Body Mass Index 23.88 07/10/2020 8:48 AM [employer] Procedures * US KIDNEY WITH DOPPLER(Performed 07/16/2020) Performed for Family history of polycystic kidney disease, Essential hypertension, benign * CBC W AUTO DIFFERENTIAL(Performed 07/10/2020) Performed for Family history of polycystic kidney disease * RENAL FUNCTION PANEL(Performed 07/10/2020) Performed for Family history of polycystic kidney disease * URINALYSIS REFLEX TO MICROSCOPIC NO CULTURE(Performed 07/10/2020) Performed for Family history of polycystic kidney disease * RENIN ACTIVITY(Performed 07/10/2020) Performed for Family history of polycystic kidney * ALDOSTERONE BLOOD(Performed 07/10/2020) Performed for Family history of polycystic kidney * ENDOTRACHEAL TUBE NOTE(Performed 07/18/2019) * EXCISION CYST PILONIDAL(Performed 07/18/2019) Performed for Pilonidal cyst * US KIDNEYS W BLADDER(Performed 02/02/2019) Performed for Patient's mother is * LIPID PROFILE+GLUCOSE - POINT OF CARE (AMB)(Performed 01/23/2019) Performed for Encounter for well child check without abnormal findings * GROSS + MICRO EXAM(Performed 2001) Results * US KIDNEY WITH DOPPLER COMPLETE (07/16/2020 9:56 AM [employer]) Anatomical Region Laterality Modality Abdomen Ultrasound 07/16/2020 9:59 AM [employer] Impressions 07/16/2020 10:47 AM [employer] IMPRESSION: 1. Normal renal size. No evidence of nephrolithiasis, hydronephrosis, or solid renal mass. 2. Patent renal vasculature without secondary signs of renal artery stenosis. Dictated by Brielle Cadena MD (vice president of advertising). I, Dr. JONATHAN CRANDALL have personally reviewed and interpreted this examination/study. This report was electronically signed by JONATHAN CRANDALL on 07/16/2020 10:47 AM . Narrative 07/16/2020 10:47 AM [employer] EXAMINATION: 1. Complete retroperitoneal sonogram 2. Color and spectral Doppler evaluation of the renal vasculature HISTORY: Z82.71: Family history of polycystic kidney disease I10: Essential hypertension, benign COMPARISON: FINDINGS: Retroperitoneum: Right kidney: 10 x 5.1 x 5.8 cm Left kidney: 10.3 x 7 x 5 cm Renal parenchymal echogenicity is normal. There is no evidence of a solid renal mass, renal calculi, or hydronephrosis. The bladder is distended and appears normal. The prostate measures 5 x 3 x 4 cm with no evidence of mass effect on the adjacent urinary bladder and with normal contour. Renal Doppler: Arcuate arterial waveforms in both kidneys demonstrate brisk systolic upstrokes. While the renal arteries were not interrogated in their entirety, the visible portions display normal arterial waveforms and velocities. The renal veins are patent bilaterally. Resistive indices: Right superior kidney: 0.68 Right mid kidney: 0.70 Right inferior kidney: 0.65 Right renal artery: 0.70 Left superior kidney: 0.63 Left mid kidney: 0.63 Left inferior kidney: 0.63 Left renal artery: 0.68 Procedure Note Jonathan Crandall MD - 07/16/2020 EXAMINATION: 1. Complete retroperitoneal sonogram 2. Color and spectral Doppler evaluation of the renal vasculature HISTORY: Z82.71: Family history of polycystic kidney disease I10: Essential hypertension, benign COMPARISON: FINDINGS: Retroperitoneum: Right kidney: 10 x 5.1 x 5.8 cm Left kidney: 10.3 x 7 x 5 cm Renal parenchymal echogenicity is normal. There is no evidence of asolid renal mass, renal calculi, or hydronephrosis. The bladder is distendedand appears normal. The prostate measures 5 x 3 x 4 cm with no evidence of mass effect on the adjacent urinary bladder and with normal contour. Renal Doppler: Arcuate arterial waveforms in both kidneys demonstrate brisk systolic upstrokes. While the renal arteries were not interrogated in their entirety, the visible portions display normal arterial waveforms and velocities. The renal veins are patent bilaterally. Resistive indices: Right superior kidney: 0.68 Right mid kidney: 0.70 Right inferior kidney: 0.65 Right renal artery: 0.70 Left superior kidney: 0.63 Left mid kidney: 0.63 Left inferior kidney: 0.63 Left renal artery: 0.68 IMPRESSION: 1. Normal renal size. No evidence of nephrolithiasis, hydronephrosis, or solid renal mass. 2. Patent renal vasculature without secondary signs of renal artery stenosis. Dictated by Brielle Cadena MD (vice president of advertising). I, Dr. JONATHAN CRANDALL have personally reviewed and interpreted this examination/study. This report was electronically signed by JONATHAN CRANDALL on 07/16/2020 10:47 AM . Daria Villareal MD US ORDERABLES * (ABNORMAL) URINALYSIS REFLEX TO MICROSCOPIC NO CULTURE (07/10/2020 9:51 AM [facility]) Color UA Yellow Straw, Yellow, Colorless 07/10/2020 10:11 AM [facility] Clarity UA Clear Clear, Slt Cloudy 07/10/2020 10:11 AM [facility] Specific [place] UA 1.019 1.005 - 1.030 07/10/2020 10:11 AM [facility] pH UA 6.0 5.0 - 8.0 pH 07/10/2020 10:11 AM [facility] Protein UA Negative Negative mg/dL 07/10/2020 10:11 AM [facility] Glucose UA Negative Negative mg/dL 07/10/2020 10:11 AM [facility] Ketone UA Negative Negative mg/dL 07/10/2020 10:11 AM [facility] Bilirubin UA Negative Negative mg/dL 07/10/2020 10:11 AM [facility] Blood UA Negative Negative 07/10/2020 10:11 AM [facility] Nitrite UA Negative Negative 07/10/2020 10:11 AM [facility] Leukocyte Esterase Negative Negative 07/10/2020 10:11 AM [facility] Urobilinogen UA 2.0(A) Negative mg/dL 07/10/2020 10:11 AM [facility] RBC UA 0-2 None Seen, 0-2, 3-5 /HPF 07/10/2020 10:11 AM [facility] WBC UA 0-5 None Seen, 0-5 /HPF 07/10/2020 10:11 AM [facility] Bacteria UA Trace None, Trace /HPF 07/10/2020 10:11 AM [facility] Squamous Epithelial Cells UA None Seen None Seen, 0-2 /HPF 07/10/2020 10:11 AM [facility] Mucus UA 1+ None, 1+ /LPF 07/10/2020 10:11 AM [facility] Urine URINE SPECIMEN OBTAINED BY CLEAN CATCH PROCEDURE / Unknown Collection / Unknown 07/10/2020 9:51 AM [employer] 07/10/2020 10:03 AM [employer] Narrative [facility] - 07/10/2020 10:11 AM [employer] Daria Villareal MD LAB - URINALYSIS ORD ERABLES Performing Organization Address City/State/[facility] Co de Phone Number [facility] [address] [place] [address], [facility] [phone] * RENIN ACTIVITY (07/10/2020 9:51 AM [employer]) Renin 1.5 ng/mL/hr 07/12/2020 8:11 PM [employer] [facility] ([facility]) Comment: INTERPRETIVE INFORMATION: Renin Activity Adult, Normal sodium diet: Supine ................. 0.2-1.6 ng/mL/hr Upright ................ 0.5-4.0 ng/mL/hr Children, Normal sodium diet, Supine: [place] (1-7 days) ..... 2.0-35.0 ng/mL/hr Cord blood ............. 4.0-32.0 ng/mL/hr 1-12 mos ............... 2.4-37.0 ng/mL/hr 13 mos-3 yrs ........... 1.7-11.2 ng/mL/hr 4-5 yrs ................ 1.0- 6.5 ng/mL/hr 6-10 yrs ............... 0.5- 5.9 ng/mL/hr 11-15 yrs .............. 0.5- 3.3 ng/mL/hr Children, normal sodium diet, Upright: 0-3 yrs ................ Not Available 4-5 yrs ................ Less than or equal to 15 ng/mL/hr 6-10 yrs ............... Less than or equal to 17 ng/mL/hr 11-15 yrs .............. Less than or equal to 16 ng/mL/hr Plasma renin activity measures enzyme ability to convert angiotensinogen to angiotensin I and is limited by the availability of angiotensinogen. Plasma renin activity is not an accurate indicator of enzyme activity when angiotensinogen is decreased. This test was developed and its performance characteristics determined by [facility]. It has not been cleared or approved by the [place] Food and Drug Administration. This test was performed in a CLIA certified laboratory and is intended for clinical purposes. Performed By: [facility] [address] [place] [address] Envelope Machine Adjuster: Anna Perry MD Blood BLOOD SPECIMEN / Unknown Lab Venipuncture / Unknown 07/10/2020 9:51 AM [employer] 07/10/2020 10:03 AM [employer] Daria Villareal MD LAB - CHEMISTRY JOÃO DIAZ [facility]) [address] [place] [address] * ALDOSTERONE BLOOD (07/10/2020 9:51 AM [employer]) Aldosterone 12.7 ng/dL 07/12/2020 2:58 PM [employer] [facility] ([facility]) Comment: INTERPRETIVE INFORMATION: Aldosterone, Serum Reference intervals for age 15 and older: Upright ......... 4.0 - 31.0 ng/dL Supine .......... Less than or equal to 16.0 ng/dL Unspecified ..... Less than or equal to 31.0 ng/dL Normal serum levels of aldosterone are dependent on the sodium intake and whether the patient is upright or supine. High sodium intake will tend to suppress serum aldosterone, whereas low sodium intake will elevate serum aldosterone. The reference intervals for serum aldosterone are based on normal sodium intake. Access complete set of age- and/or gender-specific reference intervals for this test in the [facility] Test Directory ([facility]). Performed By: [facility] [address] [place] [address] Envelope Machine Adjuster: Anna Perry MD Blood BLOOD SPECIMEN / Unknown Lab Venipuncture / Unknown 07/10/2020 9:51 AM [employer] 07/10/2020 11:07 AM [employer] Daria Villareal MD LAB - CHEMISTRY [facility]) [address] * CBC WITH DIFFERENTIAL (07/10/2020 9:51 AM [facility]) WBC 5.2 3.5 - 10.5 10 3/uL 07/10/2020 10:08 AM [facility] RBC 4.96 4.30 - 5.70 10 6/uL 07/10/2020 10:08 AM [facility] Hemoglobin 14.8 13.5 - 17.5 g/dL 07/10/2020 10:08 AM [facility] Hematocrit 43.0 39.0 - 50.0 % 07/10/2020 10:08 AM [facility] MCV 86.7 81.0 - 97.0 fL 07/10/2020 10:08 AM [facility] MCH 29.8 28.0 - 34.0 pg 07/10/2020 10:08 AM [facility] MCHC 34.4 32.0 - 36.0 g/dL 07/10/2020 10:08 AM [facility] Platelet Count 233 150 - 400 10 3/uL 07/10/2020 10:08 AM [facility] RDW-SD 36.1 36.0 - 50.0 fL 07/10/2020 10:08 AM [facility] RDW-CV 11.5 11.2 - 14.8 % 07/10/2020 10:08 AM [facility] MPV 10.5 9.3 - 12.8 fL 07/10/2020 10:08 AM [facility] nRBC Absolute 0.00 0 10 3/uL 07/10/2020 10:08 AM [facility] nRBC Auto 0.0 0 /100 WBC 07/10/2020 10:08 AM [facility] Neutrophils % 36.3 35.0 - 70.0 % 07/10/2020 10:08 AM [facility] Lymphocytes % 51.1 19.7 - 55.1 % 07/10/2020 10:08 AM [facility] Monocytes % 8.4 3.0 - 15.0 % 07/10/2020 10:08 AM [facility] Eosinophils % 3.4 0.0 - 6.0 % 07/10/2020 10:08 AM [facility] Basophil % 0.6 0.0 - 1.5 % 07/10/2020 10:08 AM [facility] Neutrophils Absolute 1.9 1.6 - 7.0 10 3/uL 07/10/2020 10:08 AM [facility] Lymphocyte Absolute 2.7 0.8 - 2.9 10 3/uL 07/10/2020 10:08 AM [facility] Monocytes Absolute 0.44 0.14 - 0.66 10 3/uL 07/10/2020 10:08 AM [facility] Eosinophils Absolute 0.18 0.00 - 0.45 10 3/uL 07/10/2020 10:08 AM [facility] Basophils Absolute 0.03 0.00 - 0.06 10 3/uL 07/10/2020 10:08 AM [facility] Immature Granulocytes % 0.2 0.0 - 1.0 % 07/10/2020 10:08 AM [facility] Blood BLOOD SPECIMEN / Unknown Lab Venipuncture / Unknown 07/10/2020 9:51 AM [employer] 07/10/2020 10:03 AM [facility] Daria Villareal MD LAB - HEMATOLOGY ORD ERABLES [address] [address], [facility] [phone] * RENAL FUNCTION PANEL (07/10/2020 9:51 AM [employer]) BUN 9 7 - 26 mg/dL 07/10/2020 10:36 AM [facility] Creatinine 0.8 0.6 - 1.2 mg/dL 07/10/2020 10:36 AM [facility] Sodium 142 136 - 145 mmol/L 07/10/2020 10:36 AM [facility] Potassium 3.8 3.5 - 4.5 mmol/L 07/10/2020 10:36 AM [facility] Chloride 107 98 - 107 mmol/L 07/10/2020 10:36 AM [facility] CO2 27 22 - 29 mmol/L 07/10/2020 10:36 AM [facility] Glucose 96 70 - 115 mg/dL 07/10/2020 10:36 AM [facility] Albumin 4.0 3.4 - 5.0 g/dL 07/10/2020 10:36 AM [facility] Calcium 8.4 8.4 - 10.2 mg/dL 07/10/2020 10:36 AM [facility] Phosphorus 3.5 2.3 - 4.7 mg/dL 07/10/2020 10:36 AM [facility] Anion Gap 12 8 - 18 07/10/2020 10:36 AM [facility] BUN/Creatinine Ratio 11 7 - 23 07/10/2020 10:36 AM [facility] Osmolality Calculated 293 270 - 300 mOsm/kg 07/10/2020 10:36 AM [facility] eGFR >60 >60 mL/min/1.7 3 m2 07/10/2020 10:36 AM [facility] Blood BLOOD SPECIMEN / Unknown Lab Venipuncture / Unknown 07/10/2020 9:51 AM [facility] 07/10/2020 10:03 AM [facility] Daria Villareal MD LAB - CHEMISTRY ORDE EMILY [facility] [address] [place] [address], [facility] [phone] * ETT LINE PERFORMABLE (07/18/2019 9:43 AM [employer]) Narrative Brandt Hernandez, - 07/18/2019 9:43 AM [employer] Brandt Hernandez DO 07/18/2019 9:44 AM Endotracheal Tube Placement: Patient Location: OR. Intubation Event Date/Time: 07/18/2019 9:27 AM Procedure: intubation ([id number]). Procedure Section: Sedation: under general anesthesia. Indications for Airway Management: anesthesia Induction: standard IV Patient Position: sniffing Mask Ventilation: easy. Blade Type: Shilpa Blade Size: 3 Laryngoscopy View: grade 1 (full cords) Tube: endotracheal tube Placement: oral Tube type: cuff - inflated Depth of Insertion (CM): 22 Measured From: lips Cuff volume (mL): 6 Cuff Inflated With: air Number of Attempts: 1. Placement Verified By: direct visualization, bilateral breath sounds, chest auscultation and CO2 monitor Tube secured with: adhesive tape. Difficult Airway? No. Procedure Start Time: 07/18/2019 9:27 AM. Staff Section Anesthesia Provider: Alex Sorto MD Provider #1: Brandt Hernandez DO, Performed the procedure. Alex Sorto MD GENERAL ANESTHESIA O RDERABLES * US KIDNEY AND BLADDER (02/02/2019 1:46 PM CDT) Anatomical Region Laterality Modality Ultrasound 02/02/2019 2:06 PM CDT Impressions 02/02/2019 2:07 PM CDT Normal renal ultrasound including the bladder. Reading Radiologist: Shaw Waller MD on 02/02/2019 at 2:07 PM Narrative 02/02/2019 2:07 PM CDT CLINICAL HISTORY: Family history of polycystic kidney. COMPARISON: None. PROCEDURE: Ultrasound of the kidneys and bladder was performed. FINDINGS: RIGHT: Right renal measurements (length and AP): 11.6 x 4.8 cm. Position: Normal. Echogenicity: Normal. Mass: None. Calculus: None. Scarring: None. Pelvocaliectasis: None. Ureteral dilatation: None. LEFT: Left renal measurements (length and AP): 11.2 x 4.6 cm. Position: Normal. Echogenicity: Normal. Mass: None. Calculus: None. Scarring: None. Pelvocaliectasis: None. Ureteral dilatation: None. The urinary bladder is incompletely distended, limiting evaluation. Procedure Note Shaw Waller MD - 02/02/2019 CLINICAL HISTORY: Family history of polycystic kidney. COMPARISON: None. PROCEDURE: Ultrasound of the kidneys and bladder was performed. FINDINGS: RIGHT: Right renal measurements (length and AP): 11.6 x 4.8 cm. Position: Normal. Echogenicity: Normal. Mass: None. Calculus: None. Scarring: None. Pelvocaliectasis: None. Ureteral dilatation: None. LEFT: Left renal measurements (length and AP): 11.2 x 4.6 cm. Position: Normal. Echogenicity: Normal. Mass: None. Calculus: None. Scarring: None. Pelvocaliectasis: None. Ureteral dilatation: None. The urinary bladder is incompletely distended, limiting evaluation. IMPRESSION Normal renal ultrasound including the bladder. Reading Radiologist: Shaw Waller MD on 02/02/2019 at 2:07 PM Damon Baldwin MD US ORDERABLES * LIPID PROFILE+GLUCOSE - POINT OF CARE (AMB) (01/23/2019) QC Verified Yes Yes Cholesterol POCT 149 200 mg/dl HDL POCT 26 mg/dL Triglycerides POCT 65 130 mg/dL LDL 111 130 mg/dl Non HDL Cholesterol POCT 124 145 mg/dL Total Cholesterol/HDL Ratio POCT 5.8 6.0 Glucose 106 70 - 126 mg/dL Blood BLOOD SPECIMEN / Unknown 01/23/2019 Lashawn Cheung MD LAB - POINT OF CARE ORDERABLES * GROSS + MICRO EXAM (2001 8:35 AM CDT) Result CASE NUMBER [id number] [facility] PATH REPORT Comment: ORDERING PHYSICIAN ADRI MCDONOUGH SPECIMEN TYPE Hernia-Left Inguinal CLINICAL HISTORY The patient is a 2-month-old boy with a diagnosis of left inguinal hernia who underwent repair of the same. GROSS DESCRIPTION Submitted in one container for gross and microscopic examination, labeled with the patient's name and left hernia sac , is a 2.0 x 1.2 x 0.3 cm membranous portion of glistening pink-white soft tissue entirely submitted in cassette A1 . [place] [place] MICROSCOPIC DESCRIPTION 1 H/E. DIAGNOSIS DIAGNOSIS LEFT INGUINAL HERNIA, HERNIORRHAPHY - MESOTHELIAL LINED FIBROUS CONNECTIVE TISSUE CONSISTENT WITH HERNIA SAC. This case has been personally reviewed and interpreted by the attending (teaching) pathologist. Child Care Sitter GENESIS MARCELINO RESIDENT IN PATHOLOG Navya Gomez M.D. PATHOLOGIST Ashley Cummings M.D. ELECTRONICALLY MATT ASHLEY CUMMINGS MISCELLANEOUS SAMPLES / Unknown 2001 8:35 AM CDT 2001 11:49 AM CDT Historical Provider MD LAB - PATHOLOGY/C YTOLOGY ORDERABLES [facility] PATH REPORT Care Teams Watch Dial Stoner Relationship Specialty Start Date End Date Mony Kilpatrick MD [address] [place] [phone] PCP - General 09/29/20 Lashawn Cheung MD [address] [place] [address] Pediatrics 01/23/19
[2024-07-31 00:36] VITALS: BP 154/89; PULSE 82; RESP 15; TEMP 36.6; O2SAT 98
[2024-07-31 00:49] VITALS: PULSE 72; O2SAT 98
[2024-07-31 00:58] LABS: Basophils Percent Auto 0.5 % (0.2-1.2); Eosinophils Absolute Auto 0.2 K/mm3 (0-0.3); Eosinophils Percent Auto 3.6 % (0-4.4); Hematocrit 44.1 % (42.0-52.0); Hemoglobin 15.4 g/dL (14.0-18.0); Immature Granulocyte Absolute 0.01 K/mm3 (0.00-0.031); Immature Granulocyte Percent A 0.2 % (0-0.5); Lymphocytes Absolute Auto 1.87 K/mm3 (0.9-3.2); Lymphocytes Percent Auto 33.2 % (18.3-44.2); Mean Corpuscular HGB Conc 34.9 g/dl (32-36); Mean Corpuscular Hemoglobin 30.6 pg (26-34); Mean Corpuscular Volume 87.5 fl (80-100); Mean Platelet Volume 10.1 fl (7.4-10.4); Monocytes Absolute Auto 0.5 K/mm3 (0.1-0.6); Monocytes Percent Auto 9.2 % (2.6-8.5); Neutrophils Percent Auto 53.3 % (45.5-73.1); Platelet Count Result 234 k/mm3 (150-375); Red Blood Count 5.04 M/mm3 (4.6-6.20); Red Cell Distribution Width 11.7 % (11.5-14.5); White Blood Count 5.6 K/mm3 (4.5-10.0)
--- OUTSIDE RECORDS SUMMARY | 2024-07-31 01:04 | XMS_ITS | Patient Health Summary ---
Author Organization [facility] Address [address] [place] [address] Care Team Providers Care Cottage Cheese Maker Name Role Phone Lashawn Cheung MD Unavailable [phone] Mony Kilpatrick MD Primary Care Provider [phone] Note from [facility],non-owned Affiliates and Associated Physician Practices is amultiple site organization consisting of ambulatory clinics and hospital sitesin [place], [place], [place] and [place]. This disclosure is being madepursuant to the Care Everywhere program and may not contain all information available regarding this patient. Last updated 18.[facility] Allergies No known active allergies Medications * [...] Comments Blood Pressure 144/80 07/10/2020 8:48 AM DIRECTOR OF EPIDEMIOLOGY Pulse 60 07/10/2020 8:48 AM DIRECTOR OF EPIDEMIOLOGY Temperature 36.5 C (97.7 F) 07/10/2020 8:48 AM DIRECTOR OF EPIDEMIOLOGY Respiratory Rate 14 07/18/2019 10:45 AM DIRECTOR OF EPIDEMIOLOGY Oxygen Saturation 100% 07/10/2020 8:48 AM DIRECTOR OF EPIDEMIOLOGY Inhaled Oxygen Concentration - - Weight 82.1 kg (181 lb) 07/10/2020 8:48 AM DIRECTOR OF EPIDEMIOLOGY Height 185.4 cm (6' 1 ) 07/10/2020 8:48 AM DIRECTOR OF EPIDEMIOLOGY Body Mass Index 23.88 07/10/2020 8:48 AM DIRECTOR OF EPIDEMIOLOGY Procedures * US KIDNEY WITH DOPPLER(Performed 07/16/2020) [...] KIDNEY WITH DOPPLER COMPLETE (07/16/2020 9:56 AM DIRECTOR OF EPIDEMIOLOGY) Anatomical Region Laterality Modality Abdomen Ultrasound 07/16/2020 9:59 AM DIRECTOR OF EPIDEMIOLOGY Impressions 07/16/2020 10:47 AM DIRECTOR OF EPIDEMIOLOGY IMPRESSION: 1. Normal renal size. No evidence of nephrolithiasis, hydronephrosis, or solid renal mass. 2. Patent renal vasculature without secondary signs of renal artery stenosis. Dictated by Brielle Cadena MD (residential glazier). I, Dr. JONATHAN CRANDALL have personally reviewed and interpreted this examination/study. This report was electronically signed by JONATHAN CRANDALL on 07/16/2020 10:47 AM . Narrative 07/16/2020 10:47 AM DIRECTOR OF EPIDEMIOLOGY EXAMINATION: 1. Complete retroperitoneal sonogram 2. Color [...] artery stenosis. Dictated by Brielle Cadena MD (residential glazier). I, Dr. JONATHAN CRANDALL have personally reviewed and interpreted this examination/study. This report was electronically signed by JONATHAN CRANDALL on 07/16/2020 10:47 AM . Daria Villareal MD US ORDERABLES * (ABNORMAL) URINALYSIS REFLEX TO MICROSCOPIC NO CULTURE (07/10/2020 9:[address] [facility]) Color UA Yellow Straw, Yellow, Colorless 07/10/2020 10:11 AM [facility] Clarity UA Clear Clear, Slt Cloudy 07/10/2020 10:11 AM [facility] Specific [place] UA 1.019 1.005 - 1.030 07/10/2020 10:11 AM [facility] pH UA 6.0 5.0 - 8.0 pH 07/10/2020 10:11 AM [facility] Protein UA Negative Negative mg/dL 07/10/2020 10:11 AM [facility] Glucose UA Negative Negative mg/dL 07/10/2020 10:11 AM [facility] Ketone UA Negative Negative mg/dL 07/10/2020 10:11 AM [facility] Bilirubin UA Negative Negative mg/dL 07/10/2020 10:11 AM [facility] Blood UA Negative Negative 07/10/2020 10:11 AM [facility] Nitrite UA Negative Negative 07/10/2020 10:11 AM [facility] Leukocyte Esterase Negative Negative 07/10/2020 10:11 AM [facility] Urobilinogen UA 2.0(A) Negative mg/dL 07/10/2020 10:11 AM [facility] RBC UA 0-2 None Seen, 0-2, 3-5 /HPF 07/10/2020 10:11 AM [facility] WBC UA 0-5 None Seen, 0-5 /HPF 07/10/2020 10:11 AM [facility] Bacteria UA Trace None, Trace /HPF 07/10/2020 10:11 AM [facility] Squamous Epithelial Cells UA None Seen None Seen, 0-2 /HPF 07/10/2020 10:11 AM [facility] Mucus UA 1+ None, 1+ /LPF 07/10/2020 10:11 AM [facility] Urine URINE SPECIMEN OBTAINED BY CLEAN CATCH PROCEDURE / Unknown Collection / Unknown 07/10/2020 9:51 AM DIRECTOR OF EPIDEMIOLOGY 07/10/2020 10:03 AM DIRECTOR OF EPIDEMIOLOGY Narrative [facility] - 07/10/2020 10:11 AM DIRECTOR OF EPIDEMIOLOGY Daria Villareal MD LAB - URINALYSIS ORD ERABLES Performing Organization Address City/State/[facility] Co de Phone Number [facility] [address] [place] [address], [facility] [phone] * RENIN ACTIVITY (07/10/2020 9:51 AM DIRECTOR OF EPIDEMIOLOGY) Renin 1.5 ng/mL/hr 07/12/2020 8:11 PM DIRECTOR OF EPIDEMIOLOGY [facility] ([facility]) Comment: INTERPRETIVE INFORMATION: Renin Activity Adult, Normal sodium diet: Supine ................. 0.2-1.6 ng/mL/hr Upright ................ 0.5-4.0 ng/mL/hr Children, Normal sodium diet, Supine: Moroni (1-7 days) ..... 2.0-35.0 ng/mL/hr Cord blood [...] developed and its performance characteristics determined by [employer]. It has not been cleared or approved by the US Food and Drug Administration. This test was performed in a CLIA certified laboratory and is intended for clinical purposes. Performed By: [facility] [address] [place] [address] Global Manager: Anna Perry MD Blood BLOOD SPECIMEN / Unknown Lab Venipuncture / Unknown 07/10/2020 9:51 AM DIRECTOR OF EPIDEMIOLOGY 07/10/2020 10:03 AM DIRECTOR OF EPIDEMIOLOGY Daria Villareal MD LAB - CHEMISTRY JO[facility]O D[facility]) [address] [place] [address] * ALDOSTERONE BLOOD (07/10/2020 9:51 AM DIRECTOR OF EPIDEMIOLOGY) Aldosterone 12.7 ng/dL 07/12/2020 2:58 PM DIRECTOR OF EPIDEMIOLOGY [facility] [employer] ([facility]) Comment: INTERPRETIVE INFORMATION: Aldosterone, Serum Reference intervals [...] reference intervals for this test in the [facility] Test Directory ([employer]). Performed By: [facility] [address] [place] [address] Global Manager: Anna Perry MD Blood BLOOD SPECIMEN / Unknown Lab Venipuncture / Unknown 07/10/2020 9:51 AM DIRECTOR OF EPIDEMIOLOGY 07/10/2020 11:07 AM DIRECTOR OF EPIDEMIOLOGY Daria Villareal MD LAB - CHEMISTRY [facility]) [address] * CBC WITH DIFFERENTIAL (07/10/2020 9:[address] [facility]) WBC 5.2 3.5 - 10.5 10 3/uL 07/10/2020 10:08 AM [facility] RBC 4.96 4.30 - 5.70 10 6/uL 07/10/2020 10:08 AM [facility] Hemoglobin 14.8 13.5 - 17.5 g/dL 07/10/2020 10:08 AM [facility] Hematocrit 43.0 39.0 - 50.0 % 07/10/2020 10:08 AM [facility] MCV 86.7 81.0 - 97.0 fL 07/10/2020 10:08 AM [facility] MCH 29.8 28.0 - 34.0 pg 07/10/2020 10:08 AM [facility] MCHC 34.4 32.0 - 36.0 g/dL 07/10/2020 10:08 AM [facility] Platelet Count 233 150 - 400 10 3/uL 07/10/2020 10:08 AM [facility] RDW-SD 36.1 36.0 - 50.0 fL 07/10/2020 10:08 AM [facility] RDW-CV 11.5 11.2 - 14.8 % 07/10/2020 10:08 AM [facility] MPV 10.5 9.3 - 12.8 fL 07/10/2020 10:08 AM [facility] nRBC Absolute 0.00 0 10 3/uL 07/10/2020 10:08 AM [facility] nRBC Auto 0.0 0 /100 WBC 07/10/2020 10:08 AM [facility] Neutrophils % 36.3 35.0 - 70.0 % 07/10/2020 10:08 AM [facility] Lymphocytes % 51.1 19.7 - 55.1 % 07/10/2020 10:08 AM [facility] Monocytes % 8.4 3.0 - 15.0 % 07/10/2020 10:08 AM [facility] Eosinophils % 3.4 0.0 - 6.0 % 07/10/2020 10:08 AM [facility] Basophil % 0.6 0.0 - 1.5 % 07/10/2020 10:08 AM [facility] Neutrophils Absolute 1.9 1.6 - 7.0 10 3/uL 07/10/2020 10:08 AM [facility] Lymphocyte Absolute 2.7 0.8 - 2.9 10 3/uL 07/10/2020 10:08 AM [facility] Monocytes Absolute 0.44 0.14 - 0.66 10 3/uL 07/10/2020 10:08 AM [facility] Eosinophils Absolute 0.18 0.00 - 0.45 10 3/uL 07/10/2020 10:08 AM [facility] Basophils Absolute 0.03 0.00 - 0.06 10 3/uL 07/10/2020 10:08 AM [facility] Immature Granulocytes % 0.2 0.0 - 1.0 % 07/10/2020 10:08 AM [facility] Blood BLOOD SPECIMEN / Unknown Lab Venipuncture / Unknown 07/10/2020 9:51 AM DIRECTOR OF EPIDEMIOLOGY 07/10/2020 10:[address] [facility] Daria Villareal MD LAB - HEMATOLOGY ORD ERABLES [address] [address], [facility] [phone] * RENAL FUNCTION PANEL (07/10/2020 9:51 AM DIRECTOR OF EPIDEMIOLOGY) BUN 9 7 - 26 mg/dL 07/10/2020 10:36 AM [facility] Creatinine 0.8 0.6 - 1.2 mg/dL 07/10/2020 10:36 AM [facility] Sodium 142 136 - 145 mmol/L 07/10/2020 10:36 AM [facility] Potassium 3.8 3.5 - 4.5 mmol/L 07/10/2020 10:36 AM [facility] Chloride 107 98 - 107 mmol/L 07/10/2020 10:36 AM [facility] CO2 27 22 - 29 mmol/L 07/10/2020 10:36 AM [facility] Glucose 96 70 - 115 mg/dL 07/10/2020 10:36 AM [facility] Albumin 4.0 3.4 - 5.0 g/dL 07/10/2020 10:36 AM [facility] Calcium 8.4 8.4 - 10.2 mg/dL 07/10/2020 10:36 AM [facility] Phosphorus 3.5 2.3 - 4.7 mg/dL 07/10/2020 10:36 AM [facility] Anion Gap 12 8 - 18 07/10/2020 10:36 AM [facility] BUN/Creatinine Ratio 11 7 - 23 07/10/2020 10:36 AM [facility] Osmolality Calculated 293 270 - 300 mOsm/kg 07/10/2020 10:36 AM [facility] eGFR >60 >60 mL/min/1.7 3 m2 07/10/2020 10:36 AM [facility] Blood BLOOD SPECIMEN / Unknown Lab Venipuncture / Unknown 07/10/2020 9:[address] [facility] 07/10/2020 10:[address] [facility] Daria Villareal MD LAB - CHEMISTRY ORDE EMILY [facility] [address] [place] [address], [facility] [phone] * ETT LINE PERFORMABLE (07/18/2019 9:43 AM DIRECTOR OF EPIDEMIOLOGY) Narrative Brandt Hernandez, - 07/18/2019 9:43 AM DIRECTOR OF EPIDEMIOLOGY Brandt Hernandez DO 07/18/2019 9:44 AM Endotracheal Tube Placement: Patient Location: [place]. Intubation Event Date/Time: 07/18/2019 9:27 AM Procedure: intubation (40640). Procedure Section: Sedation: under general anesthesia. Indications [...] AM CDT) Result CASE NUMBER [id number] [facility] LAB PATH REPORT Comment: ORDERING PHYSICIAN ADRI [...] tissue entirely submitted in cassette A1 . (EP/CF/[facility]) MICROSCOPIC DESCRIPTION 1 H/E. DIAGNOSIS DIAGNOSIS LEFT INGUINAL HERNIA, HERNIORRHAPHY - MESOTHELIAL LINED FIBROUS CONNECTIVE TISSUE CONSISTENT WITH HERNIA SAC. This case has been personally reviewed and interpreted by the attending (teaching) pathologist. Annealing Oven Operator GENESIS MARCELINO RESIDENT IN PATHOLOG Navya Gomez M.D. PATHOLOGIST Ashley Cummings M.D. ELECTRONICALLY MATT ASHLEY CUMMINGS MISCELLANEOUS SAMPLES / Unknown 2001 8:35 AM CDT 2001 11:49 AM CDT Historical Provider MD LAB - PATHOLOGY/C YTOLOGY ORDERABLES [facility] LAB PATH REPORT Care Teams Cottage Cheese Maker Relationship Specialty Start Date End Date Mony Kilpatrick MD [address] [place] [phone] PCP - General 09/29/20 Lashawn Cheung MD [address] [place] [address] Pediatrics 01/23/19
--- OUTSIDE RECORDS SUMMARY | 2024-07-31 01:04 | XMS_ITS | Referral Summary ---
Author Organization [facility] Virtual Care Address [address] [place] [phone] Phone Care Team Providers Care Mainspring Former Arbor End Name Role Phone Dayron Gamez MD Unavailable [phone] Basilia Villarreal MD Primary Care Pro vider Encounters Date Type Department Care Team Description 07/03/2024 11:30 AM MOTOR MECHANIC Office Visit [facility] Orthopedics and Sports Medicine [address] [place] [address] [place] [phone] Rajni Rodriguez DO Patellar contusion, right, initial encounter (Primary Dx) 06/20/2024 3:16 PM MOTOR MECHANIC - 06/20/2024 11:59 PM MOTOR MECHANIC Hospital Encounter [facility] MRI [employer] [place], [place] [address] Bucket-handle tear of medial meniscus of right knee as current injury, initial encounter Discharge Disposition: Discharge to home or self care 06/15/2024 3:30 PM MOTOR MECHANIC - 06/15/2024 4:25 PM MOTOR MECHANIC Emergency [facility] Emergency Department [address] [place] [phone] Injury of right knee, subsequent encounter (Primary Dx) Discharge Disposition: Discharge to home or self care 06/12/2024 Telephone [facility] Orthopedics and Sports Medicine [address] [place] [address] [address] [place] [address] Rajni Rodriguez DO MRI auth 06/12/2024 9:00 AM MOTOR MECHANIC Office Visit [facility] Orthopedics and Sports Medicine [address] [facility] [address] [place] [phone] Rajni Rodriguez DO Bucket-handle tear of medial meniscus of right knee as current injury, initial encounter (Primary Dx) 06/05/2024 9:46 PM MOTOR MECHANIC - 06/06/2024 12:55 AM [facility] Emergency [facility] Emergency Department [address] [place] [address] Sprain of right knee, unspecified ligament, initial [...] 11/10/2020 Assessment & Plan (06/09/2023 3:31 PM MOTOR MECHANIC): Patient's velocities are [id number] on most recent duplex. I am questioning whether patient truly has renal artery stenosis for essential hypertension. Will obtain CTA of the abdomen and pelvis to evaluate further follow-up versus surgical intervention versus no follow-up. Will call patient with results Assessment & Plan (05/13/2022 10:54 AM MOTOR MECHANIC): Impression: Patient's blood pressure is currently controlled [...] issues. Assessment & Plan (05/14/2021 10:07 AM MOTOR MECHANIC): Impression: Patient's blood pressure is controlled. Renal duplex reveals a right RAR of 1.25 and left RAR1.05. Mild proximal renal artery stenosis with velocity of 185cm/sec Plan: Recommend patient to continue monitoring in taking his blood pressures. Patient to follow-up in 1 year for re-evaluation with renal duplex. Hypertension 11/10/2020 Assessment & Plan (05/13/2022 10:54 AM MOTOR MECHANIC): Impression: Chronic hypertension currently controlled on 3 antihypertensive medications. Blood pressure stable. Plan: Continue blood pressure management as per primary care provider/cardiology. Assessment & Plan (05/13/2021 2:56 PM MOTOR MECHANIC): Impression: Chronic stable hypertension, controlled medications. Blood [...] on file Legal Sex Male 7:14 PM MOTOR MECHANIC Gender Identity Male 06/12/2024 12:17 PM MOTOR MECHANIC Sexual Orientation Straight 06/12/2024 12 :17 PM MOTOR MECHANIC Last Filed Vital Signs Vital Sign Reading Time Taken Comments Blood Pressure 162/94 06/15/2024 4:00 PM MOTOR MECHANIC Pulse 64 06/15/2024 4:20 PM MOTOR MECHANIC Temperature 36.4 C (97.6 F) 06/15/2024 2:50 PM MOTOR MECHANIC Respiratory Rate 16 06/15/2024 2:50 PM MOTOR MECHANIC Oxygen Saturation 98% 06/15/2024 4:20 PM MOTOR MECHANIC Inhaled Oxygen Concentration - - Weight 92.8 kg (204 lb 9.4 oz) 06/15/2024 2:50 P M MOTOR MECHANIC Height 180.3 cm (5' 11 ) 06/15/2024 2:50 PM MOTOR MECHANIC Body Mass Index 28.53 06/15/2024 2:50 PM MOTOR MECHANIC Plan of Treatment Not on file Procedures Procedure Name Priority Date/Time Associated Diagnosis Comments MRI KNEE RIGHT WO CONTRAST Schedule SHOSHANA, Read Routine (Patient lives out of area) 06/20/2024 4:06 PM MOTOR MECHANIC Bucket-handle tear of medial meniscus of right knee as current injury, initial encounter CT KNEE RIGHT WO CONTRAST ED 06/05/2024 11:49 PM MOTOR MECHANIC XR NECK SOFT TISSUE ED 06/05/2024 8:05 PM MOTOR MECHANIC XR RADIUS ULNA LEFT 2 VIEWS ED 06/05/2024 8:05 PM MOTOR MECHANIC XR KNEE RIGHT 3 VIEWS ED 06/05/2024 8:05 PM MOTOR MECHANIC XR TIBIA FIBULA RIGHT2 VIEWS ED 06/05/2024 8:05 PM MOTOR MECHANIC from Last 3 Months Results * MRI Knee Right WO Contrast (06/20/2024 4:06 PM MOTOR MECHANIC) Anatomical Region Laterality Modality Lower Extremities Right Magnetic Reson ance 06/20/2024 4:21 PM MOTOR MECHANIC Narrative 06/20/2024 4:48 PM MOTOR MECHANIC EXAM DESCRIPTION: MRI KNEE RIGHT WO CONTRAST [...] Thong Whipple M.D. MJ: DANY Report ID: [id number] Reading Location: [id number] Procedure Note Thong Whipple MD - 06/20/2024 [...] Thong Whipple M.D. MJ: DANY Report ID: [id number] Reading Location: [id number] Rajni Rodriguez DO IMG MRI PROCEDURES Final Resul t * CT Knee Right WO Contrast (06/05/2024 11:49 PM MOTOR MECHANIC) Anatomical Region Laterality Modality Lower Extremities Right Computed Tomog aiden 06/06/2024 12:0 4 AM MOTOR MECHANIC Narrative 06/06/2024 12:06 AM MOTOR MECHANIC EXAM DESCRIPTION: CT KNEE RIGHT WO CONTRAST [...] Jona Gupta M.D. AR: KEMI Report ID: [id number] Reading Location: [place] [address] Procedure Note Jona Gupta MD - 06/06/2024 [...] Jona Gupta M.D. AR: KEMI Report ID: [id number] Reading Location: [id number] Olivia Horowitz SCRAP BURNER IMG CT PROCEDURES Final Result * XR Tibia Fibula Right 2 Views (06/05/2024 8:05 PM MOTOR MECHANIC) Anatomical Region Laterality Modality Lower Extremities, Lower Leg Right Com puted Radiography 06/05/2024 8:26 PM MOTOR MECHANIC Narrative 06/05/2024 8:27 PM MOTOR MECHANIC EXAM DESCRIPTION: XR TIBIA FIBULA RIGHT2 VIEWS [...] La O M.D. MM: MM Report ID: [id number] Reading Location: [id number] Procedure Note Sp De La O MD [...] La O M.D. MM: MM Report ID: [id number] Reading Location: [id number] Olivia Horowitz NP IMG XR PROCEDURES Final Result * XR Knee Right 3 Views (06/05/2024 8:05 PM MOTOR MECHANIC) Anatomical Region Laterality Modality Lower Extremities, Knee Right Computed Radiography 06/05/2024 8:26 PM MOTOR MECHANIC Narrative 06/05/2024 8:30 PM MOTOR MECHANIC EXAM DESCRIPTION: XR KNEE RIGHT 3 VIEWS [...] Brian Wallace M.D. MZ: ALVAREZ Report ID: [id number] Reading Location: [place] [address] Procedure Note Brian Wallace MD - 06/05/2024 [...] Brian Wallace M.D. MZ: ALVAREZ Report ID: [id number] Reading Location: [id number] us Olivia Horowitz NP IMG XR PROCEDURES Final Result * XR Radius Ulna Left 2 Views (06/05/2024 8:05 PM MOTOR MECHANIC) Anatomical Region Laterality Modality Upper Extremities, Forearm Left Compu jose Radiography 06/05/2024 8:28 PM MOTOR MECHANIC Narrative 06/05/2024 8:29 PM MOTOR MECHANIC EXAM DESCRIPTION: XR RADIUS ULNA LEFT 2 [...] by Mary Brown M.D. AB: Report ID: [id number] Reading Location: [id number] Procedure Note Mary Brown MD - 06/05/2024 [...] Mary Brown M.D. AB: AB Report ID: [id number] Reading Location: [id number] Olivia Horowitz NP IMG XR PROCEDURES Final Result * XR Neck Soft Tissue (06/05/2024 8:05 PM MOTOR MECHANIC) Anatomical Region Laterality Modality Head and Neck N/A Computed Radiogr aphy 06/05/2024 8:30 PM MOTOR MECHANIC Narrative 06/05/2024 8:33 PM MOTOR MECHANIC EXAM DESCRIPTION: XR NECK SOFT TISSUE REASON [...] Mary Brown M.D. AB: AB Report ID: [id number] Reading Location: [id number] Procedure Note Mary Brown MD - 06/05/2024 [...] by Mary Brown M.D. AB: Report ID: [id number] Reading Location: [id number] Olivia Horowitz NP IMG XR PROCEDURES Final Result from Last 3 Months Insurance [facility] MRA Care Teams Mainspring Former Arbor End Relationship Specialty Start Date End Date Basilia Villarreal MD [address] [facility] [address] [place] [address] PCP - General Nanoscience Technician 08/25/22 Dayron Gamez MD [address] [facility] [address] [place] [address] Surgeon Surgery 05/10/22
--- OUTSIDE RECORDS SUMMARY | 2024-07-31 01:04 | XMS_ITS | Referral Summary ---
Author Organization [facility] Address [address] [facility] [place] [address] Care Team Providers Care Numerologist Name Role Phone Lashawn Cheung MD Unavailable [phone] Mony Kilpatrick MD Primary Care Provider [phone] Source Comments [facility],non-owned Affiliates and Associated Physician Practices is amultiple site organization consisting of ambulatory clinics and hospital sitesin [place], [place], [place] and [place]. This disclosure is being madepursuant to the Care Everywhere program and may not contain all information available regarding this patient. Last updated 18.[facility] Allergies No known active allergies Medications * [...] Comments Blood Pressure 144/80 07/10/2020 8:48 AM MERCHANDISE DISPLAYER Pulse 60 07/10/2020 8:48 AM MERCHANDISE DISPLAYER Temperature 36.5 C (97.7 F) 07/10/2020 8:48 AM MERCHANDISE DISPLAYER Respiratory Rate 14 07/18/2019 10:45 AM MERCHANDISE DISPLAYER Oxygen Saturation 100% 07/10/2020 8:48 AM MERCHANDISE DISPLAYER Inhaled Oxygen Concentration - - Weight 82.1 kg (181 lb) 07/10/2020 8:48 AM MERCHANDISE DISPLAYER Height 185.4 cm (6' 1 ) 07/10/2020 8:48 AM MERCHANDISE DISPLAYER Body Mass Index 23.88 07/10/2020 8:48 AM MERCHANDISE DISPLAYER Plan of Treatment Not on file Goals Goal Patient Goal Type Associated Problems Recent Progress Patient-Stated? Author Use safety retraint in car Lifestyle On track( 019 8:46 AM CDT) Marcia Cota, QASIM Care Teams Numerologist Relationship Specialty Start Date End Date Mony Kilpatrick MD [address] [place] [address] PCP - General 09/29/20 Lashawn Cheung MD [address] [place] [address] Pediatrics 01/23/19
--- OUTSIDE RECORDS SUMMARY | 2024-07-31 01:04 | XMS_ITS | Clinical Summary ---
Author Organization [facility] Address [facility] [place] [address] Care Team Providers Care Pharmacy Scheduler Name Role Phone None, Provider MD Primary [...] this topic Insurance [facility] [place] Advance Directives Documents on File Type Date Recorded Patient Healthcare Liaison Expl anation Legal Documents 04/30/2022 3:33 PM COMPLET ED ATTNY REQ Care Teams Pharmacy Scheduler Relationship Specialty Start Date End Date None, Provider, PCP - General 02/28/22
--- OUTSIDE RECORDS SUMMARY | 2024-07-31 01:04 | XMS_ITS | Clinical Summary ---
Author Organization [facility] Virtual Care Address [facility] [place] [address] Phone Care Team Providers Care Grinder Tender Name Role Phone Dayron Gamez MD Unavailable [phone] Basilia Villarreal MD Primary Care Pro [...] 11/10/2020 Assessment & Plan (06/09/2023 3:31 PM PUBLIC HEALTH SOCIAL WORKER): Patient's velocities are [id number] on most recent duplex. I am questioning whether patient truly has renal artery stenosis for essential hypertension. Will obtain CTA of the abdomen and pelvis to evaluate further follow-up versus surgical intervention versus no follow-up. Will call patient with results Assessment & Plan (05/13/2022 10:54 AM PUBLIC HEALTH SOCIAL WORKER): Impression: Patient's blood pressure is currently controlled [...] issues. Assessment & Plan (05/14/2021 10:07 AM PUBLIC HEALTH SOCIAL WORKER): Impression: Patient's blood pressure is controlled. Renal duplex reveals a right RAR of 1.25 and left RAR1.05. Mild proximal renal artery stenosis with velocity of 185cm/sec Plan: Recommend patient to continue monitoring in taking his blood pressures. Patient to follow-up in 1 year for re-evaluation with renal duplex. Hypertension 11/10/2020 Assessment & Plan (05/13/2022 10:54 AM PUBLIC HEALTH SOCIAL WORKER): Impression: Chronic hypertension currently controlled on 3 antihypertensive medications. Blood pressure stable. Plan: Continue blood pressure management as per primary care provider/cardiology. Assessment & Plan (05/13/2021 2:56 PM PUBLIC HEALTH SOCIAL WORKER): Impression: Chronic stable hypertension, controlled medications. Blood [...] Department Care Team Description 07/03/2024 11:30 AM PUBLIC HEALTH SOCIAL WORKER Office Visit [facility] [address] [place] [phone] Rajni Rodriguez DO Patellar contusion, right, initial encounter (Primary Dx) 06/20/2024 3:16 PM PUBLIC HEALTH SOCIAL WORKER - 06/20/2024 11:59 PM PUBLIC HEALTH SOCIAL WORKER Hospital Encounter [facility] MRI [address] [place] [id number] Bucket-handle tear of medial meniscus of right knee as current injury, initial encounter Discharge Disposition: Discharge to home or self care 06/15/2024 3:30 PM PUBLIC HEALTH SOCIAL WORKER - 06/15/2024 4:25 PM PUBLIC HEALTH SOCIAL WORKER Emergency [facility] Emergency Department [address] [place] [phone] Injury of right knee, subsequent encounter (Primary Dx) Discharge Disposition: Discharge to home or self care 06/12/2024 9:00 AM PUBLIC HEALTH SOCIAL WORKER Office Visit [facility] [address] [place] [phone] Rajni Rodriguez DO Bucket-handle tear of medial meniscus of right knee as current injury, initial encounter (Primary Dx) 06/12/2024 Telephone [facility] [address] [place] [address] [place] [phone] MichaelRajni olvera MRI auth 06/05/2024 9:46 PM PUBLIC HEALTH SOCIAL WORKER - 06/06/2024 12:55 AM PUBLIC HEALTH SOCIAL WORKER Emergency [facility] Emergency Department [address] [place] [phone] Sprain of right knee, unspecified ligament, initial [...] on file Legal Sex Male 7:14 PM PUBLIC HEALTH SOCIAL WORKER Gender Identity Male 06/12/2024 12:17 PM PUBLIC HEALTH SOCIAL WORKER Sexual Orientation Straight 06/12/2024 12 :17 PM PUBLIC HEALTH SOCIAL WORKER Obstetrics History Last Filed Vital Signs Vital Sign Reading Time Taken Comments Blood Pressure 162/94 06/15/2024 4:00 PM PUBLIC HEALTH SOCIAL WORKER Pulse 64 06/15/2024 4:20 PM PUBLIC HEALTH SOCIAL WORKER Temperature 36.4 C (97.6 F) 06/15/2024 2:50 PM PUBLIC HEALTH SOCIAL WORKER Respiratory Rate 16 06/15/2024 2:50 PM PUBLIC HEALTH SOCIAL WORKER Oxygen Saturation 98% 06/15/2024 4:20 PM PUBLIC HEALTH SOCIAL WORKER Inhaled Oxygen Concentration - - Weight 92.8 kg (204 lb 9.4 oz) 06/15/2024 2:50 P M PUBLIC HEALTH SOCIAL WORKER Height 180.3 cm (5' 11 ) 06/15/2024 2:50 PM PUBLIC HEALTH SOCIAL WORKER Body Mass Index 28.53 06/15/2024 2:50 PM PUBLIC HEALTH SOCIAL WORKER Plan of Treatment Health Maintenance Due Date [...] lives out of area) 06/20/2024 4:06 PM PUBLIC HEALTH SOCIAL WORKER Bucket-handle tear of medial meniscus of right knee as current injury, initial encounter CT KNEE RIGHT WO CONTRAST ED 06/05/2024 11:49 PM PUBLIC HEALTH SOCIAL WORKER XR NECK SOFT TISSUE ED 06/05/2024 8:05 PM PUBLIC HEALTH SOCIAL WORKER XR RADIUS ULNA LEFT 2 VIEWS ED 06/05/2024 8:05 PM PUBLIC HEALTH SOCIAL WORKER XR KNEE RIGHT 3 VIEWS ED 06/05/2024 8:05 PM PUBLIC HEALTH SOCIAL WORKER XR TIBIA FIBULA RIGHT2 VIEWS ED 06/05/2024 8:05 PM PUBLIC HEALTH SOCIAL WORKER from Last 3 Months Results * MRI Knee Right WO Contrast (06/20/2024 4:06 PM PUBLIC HEALTH SOCIAL WORKER) Anatomical Region Laterality Modality Lower Extremities Right Magnetic Reson ance 06/20/2024 4:21 PM PUBLIC HEALTH SOCIAL WORKER Narrative 06/20/2024 4:48 PM PUBLIC HEALTH SOCIAL WORKER EXAM DESCRIPTION: MRI KNEE RIGHT WO CONTRAST [...] Thong Whipple M.D. MJ: DANY Report ID: [id number] Reading Location: [id number] Procedure Note Thong Whipple MD - 06/20/2024 [...] Thong Whipple M.D. MJ: DANY Report ID: [id number] Reading Location: [id number] us Rajni Michael DO IMG MRI PROCEDURES Final Resul t * CT Knee Right WO Contrast (06/05/2024 11:49 PM PUBLIC HEALTH SOCIAL WORKER) Anatomical Region Laterality Modality Lower Extremities Right Computed Tomog aiden 06/06/2024 12:0 4 AM PUBLIC HEALTH SOCIAL WORKER Narrative 06/06/2024 12:06 AM PUBLIC HEALTH SOCIAL WORKER EXAM DESCRIPTION: CT KNEE RIGHT WO CONTRAST [...] Jona Gupta M.D. AR: KEMI Report ID: [id number] Reading Location: [id number] Procedure Note Jona Gupta MD - 06/06/2024 [...] Jona Gupta M.D. AR: KEMI Report ID: [id number] Reading Location: [place] [id number] [address] NP IMG CT PROCEDURES Final Result * XR Tibia Fibula Right 2 Views (06/05/2024 8:05 PM PUBLIC HEALTH SOCIAL WORKER) Anatomical Region Laterality Modality Lower Extremities, Lower Leg Right Com puted Radiography 06/05/2024 8:26 PM PUBLIC HEALTH SOCIAL WORKER Narrative 06/05/2024 8:27 PM PUBLIC HEALTH SOCIAL WORKER EXAM DESCRIPTION: XR TIBIA FIBULA RIGHT2 VIEWS [...] La O M.D. MM: MM Report ID: [id number] Reading Location: [id number] Procedure Note Sp De La O MD [...] La O M.D. MM: MM Report ID: [id number] Reading Location: [id number] Olivia Horowitz NP IMG XR PROCEDURES Final Result * XR Knee Right 3 Views (06/05/2024 8:05 PM PUBLIC HEALTH SOCIAL WORKER) Anatomical Region Laterality Modality Lower Extremities, Knee Right Computed Radiography 06/05/2024 8:26 PM PUBLIC HEALTH SOCIAL WORKER Narrative 06/05/2024 8:30 PM PUBLIC HEALTH SOCIAL WORKER EXAM DESCRIPTION: XR KNEE RIGHT 3 VIEWS [...] Brian Wallace M.D. MZ: MZ Report ID: [id number] Reading Location: [id number] Procedure Note Brian Wallace MD - 06/05/2024 [...] Brian Wallace M.D. MZ: MZ Report ID: [id number] Reading Location: [id number] Olivia Horowitz NP IMG XR PROCEDURES Final Result * XR Radius Ulna Left 2 Views (06/05/2024 8:05 PM PUBLIC HEALTH SOCIAL WORKER) Anatomical Region Laterality Modality Upper Extremities, Forearm Left Compu jose Radiography 06/05/2024 8:28 PM PUBLIC HEALTH SOCIAL WORKER Narrative 06/05/2024 8:29 PM PUBLIC HEALTH SOCIAL WORKER EXAM DESCRIPTION: XR RADIUS ULNA LEFT 2 [...] by Mary Brown M.D. AB: Report ID: [id number] Reading Location: [id number] Procedure Note Mary Brown MD - 06/05/2024 [...] by Mary Brown M.D. AB: Report ID: [id number] Reading Location: [id number] Olivia Horowitz NP IMG XR PROCEDURES Final Result * XR Neck Soft Tissue (06/05/2024 8:05 PM PUBLIC HEALTH SOCIAL WORKER) Anatomical Region Laterality Modality Head and Neck N/A Computed Radiogr aphy 06/05/2024 8:30 PM PUBLIC HEALTH SOCIAL WORKER Narrative 06/05/2024 8:33 PM PUBLIC HEALTH SOCIAL WORKER EXAM DESCRIPTION: XR NECK SOFT TISSUE REASON [...] Mary Brown M.D. AB: AB Report ID: [id number] Reading Location: [id number] Procedure Note Mary Brown MD - 06/05/2024 [...] Mary Brown M.D. AB: AB Report ID: [id number] Reading Location: [place] [address] Olivia Scotthtar MAGENTO DEVELOPER IMG XR PROCEDURES Final Result from Last 3 Months Insurance [facility] Care Teams Grinder Tender Relationship Specialty Start Date End Date Basilia Villarreal MD [id number] [place] [address] PCP - General Box Machine Operator 08/25/22 Dayron Gamez MD [address] [place] [address] Surgeon Surgery 05/10/22
--- OUTSIDE RECORDS SUMMARY | 2024-07-31 01:04 | XMS_ITS | Clinical Summary ---
Author Organization [facility] [employer] Address [address] [place] [address] Care Team Providers Care Cleaner Industrial Name Role Phone Lashawn Cheung MD Unavailable [phone] Mony Kilpatrick MD Primary Care Provider [phone] Source Comments [facility],non-owned Affiliates and Associated Physician Practices is amultiple site organization consisting of ambulatory clinics and hospital sitesin [place], [place], [place] and [place]. This disclosure is being madepursuant to the Care Everywhere program and may not contain all information available regarding this patient. Last updated 18.[facility] [employer] Allergies No known active allergies Medications * [...] Comments Blood Pressure 144/80 07/10/2020 8:48 AM COMPOSING MACHINE OPERATOR Pulse 60 07/10/2020 8:48 AM COMPOSING MACHINE OPERATOR Temperature 36.5 C (97.7 F) 07/10/2020 8:48 AM COMPOSING MACHINE OPERATOR Respiratory Rate 14 07/18/2019 10:45 AM COMPOSING MACHINE OPERATOR Oxygen Saturation 100% 07/10/2020 8:48 AM COMPOSING MACHINE OPERATOR Inhaled Oxygen Concentration - - Weight 82.1 kg (181 lb) 07/10/2020 8:48 AM COMPOSING MACHINE OPERATOR Height 185.4 cm (6' 1 ) 07/10/2020 8:48 AM COMPOSING MACHINE OPERATOR Body Mass Index 23.88 07/10/2020 8:48 AM COMPOSING MACHINE OPERATOR Plan of Treatment Health Maintenance Due Date [...] AM CDT) Marcia Cota MA Care Teams Cleaner Industrial Relationship Specialty Start Date End Date Mony Kilpatrick MD [address] [place] [phone] PCP - General 09/29/20 Lashawn Cheung MD [address] [place] [address] Pediatrics 01/23/19
[2024-07-31 01:13] LABS: INR 1.1; Prothrombin Time 14.8 Seconds (11.1-14.7)
[2024-07-31 01:15] LABS: Partial Thromboplastin Time 31.9 Seconds (22.3-36.8)
[2024-07-31 01:26] LABS: Troponin I < 0.012 ng/mL (0.000-0.034)
[2024-07-31] MEDS: SODIUM CHLORIDE 0.9% IV 1,000 ML 999 ML IV CONT (01:35)
[2024-07-31 01:44] LABS: Alanine Aminotransferase 58 U/L (6-50); Albumin Level 4.3 g/dL (3.5-5.1); Alkaline Phosphatase 68 U/L (38-126); Anion Gap 10 mmol/L (4-12); Aspartate Amino Transferase 31 U/L (17-59); Bilirubin,Total 0.8 mg/dL (0.2-1.3); Blood Urea Nitrogen 15 mg/dL (9-20); Carbon Dioxide 24 mmol/L (22-30); Chloride 104 mmol/L (98-107); Estimated CRCL calculation 148 ml/min; Estimated Glomerular Filt Rate > 60; Glucose 109 mg/dL (65-110); Lipase 67 U/L (23-300); Sodium 138 mmol/L (137-145)
--- NOTE | 2024-07-31 02:11 | ED_ITS ---
HPI - General Adult General Chief complaint: Chest Pain Stated complaint: Severe chest pain and abd pain Time Seen by Provider: 07/31/24 01:33 History of Present Illness HPI narrative: Patient is a 23-year-old male who presents emergency department this evening complaining of chest pain and periumbilical abdominal which started this evening. Patient states that his pain initially started in his abdomen and radiated to his chest. Denies any similar symptoms in the past, any history of cardiovascular or GI disease. Denies any recent illness, fevers or chills, nausea vomiting or diarrhea. Related Data Allergies Allergy/AdvReac Type Severity Reaction Status Date / Time grass pollen Allergy Itching Verified 02/27/23 21:28 pollen extracts Allergy Itching Verified 02/27/23 21:28 Review of Systems 2 Review of Systems: All systems are reviewed and are negative unless stated otherwise in the HPI. Exam 2 Narrative: General: Alert, awake, afebrile, in no acute distress. HEENT: PERRL, no rhinorrhea, no post nasal drip, oropharynx clear. Neck: Trachea midline, no JVD, no lymphadenopathy. Cardiovascular: Regular rate and rhythm, no murmurs, rubs or gallops, no peripheral edema. Respiratory: Clear to auscultation bilaterally, no tachypnea, no wheezing, no rhonchi, no rubs, no respiratory distress. Abdomen: Soft, nontender, nondistended, no rebound, no guarding, no peritoneal signs. Musculoskeletal: No joint swelling or deformity, normal muscle tone. Skin: No rashes or petechia, no signs of infection. Psychiatric: Alert and oriented, normal behavior and judgment for situation. Neurological: Alert and oriented to person, place, and time. Follows all commands. No focal deficits, speech is clear and fluent. Course Vital Signs Vital signs: Vital Signs Temperature 98 F 07/31/24 00:36 Pulse Rate 82 07/31/24 00:36 Respiratory Rate 15 07/31/24 00:36 Blood Pressure 154/89 H 07/31/24 00:36 Pulse Oximetry 98 07/31/24 00:36 Oxygen Delivery Room Air 07/31/24 00:36 Temperature 98 F 07/31/24 00:36 Pulse Rate 72 07/31/24 00:49 Respiratory Rate 15 07/31/24 00:36 Blood Pressure 154/89 H 07/31/24 00:36 Pulse Oximetry 98 07/31/24 00:49 Oxygen Delivery Room Air 07/31/24 00:49 Medical Decision Making Differential Diagnosis Differential Diagnosis: The patient was evaluated by myself in the emergency department. History is obtained from patient who is an independent historian and physical exam was performed. External medical records were reviewed at this time. IV was established and pertinent tests were ordered. Patient was administered 20 mg of IV Pepcid and 1 L IV fluid bolus with normal saline. EKG was obtained which revealed sinus rhythm rate of 78 beats per minute. No evidence of acute ischemia. EKG was independently interpreted by me and is currently pending official cardiology read. Laboratory results obtained revealing no acute process. Imaging studies obtained included Portable chest x-ray and CT abdomen pelvis with IV contrast which was independently interpreted by me revealing no acute process, normal appendix, which is pending final radiology interpretation. Differential diagnosis considerations include gastritis, peptic ulcer disease, pancreatitis, appendicitis, infectious process such as pneumonia, costochondritis, acute coronary syndrome although unlikely given patient's low heart score of 0. Comorbidities impacting this visit include none. I have evaluated and discussed social determinants of health with the patient that could potentially impact subsequent diagnosis and treatment plans. On repeat assessment of the patient, reevaluation revealed that the patient is doing well and is in no acute distress. Patient symptoms have improved since he arrived to our emergency department. Repeat vital signs were all reviewed and noted to be stable. Differential diagnosis and treatment plan were discussed with the patient at bedside. Patient agrees with discussion and after shared medical decision making agrees with discharge. All questions were answered to the patient's satisfaction. Patient will follow up with his GI in 3-5 days. Patient was provided with strict return precautions and instructed to return to the emergency department if any new or worsening symptoms develop. The patient was discharged in stable condition. Vital Signs Vital Signs: Vital Signs Temperature 98 F 07/31/24 00:36 Pulse Rate 82 07/31/24 00:36 Respiratory Rate 15 07/31/24 00:36 Blood Pressure 154/89 H 07/31/24 00:36 Pulse Oximetry 98 07/31/24 00:36 Oxygen Delivery Room Air 07/31/24 00:36 Temperature 98 F 07/31/24 00:36 Pulse Rate 72 07/31/24 00:49 Respiratory Rate 15 07/31/24 00:36 Blood Pressure 154/89 H 07/31/24 00:36 Pulse Oximetry 98 07/31/24 00:49 Oxygen Delivery Room Air 07/31/24 00:49 Lab Data 07/31/24 00:51 07/31/24 00:51 Labs: Lab Results 07/31/24 07/31/24 07/31/24 Range/Units 00:51 02:42 03:54 WBC 5.6 (4.5-10.0) K/mm3 RBC 5.04 (4.6-6.20) M/mm3 Hgb 15.4 (14.0-18.0) g/dL Hct 44.1 (42.0-52.0) % MCV 87.5 (80-100) fl MCH 30.6 (26-34) pg MCHC 34.9 (32-36) g/dl RDW 11.7 (11.5-14.5) % Plt Count 234 (150-375) k/mm3 MPV 10.1 (7.4-10.4) fl Immature Gran % (Auto) 0.2 (0-0.5) % Neut % (Auto) 53.3 (45.5-73.1) % Lymph % (Auto) 33.2 (18.3-44.2) % Coles % (Auto) 9.2 H (2.6-8.5) % Eos % (Auto) 3.6 (0-4.4) % Baso % (Auto) 0.5 (0.2-1.2) % Lymph # (Auto) 1.87 (0.9-3.2) K/mm3 Coles # (Auto) 0.5 (0.1-0.6) K/mm3 Eos # (Auto) 0.2 (0-0.3) K/mm3 Baso # (Auto) 0.0 (0.0-0.1) K/mm3 Abs Immat Gran (auto) 0.01 (0.00-0.031) K/mm3 Absolute Neuts (auto) 3.0 (1.3-6.7) K/mm3 Absolute Nucleated RBC 0.000 (0.0-0.012) K/mm3 Nucleated RBC % 0.0 (0.0-0.2) % PT 14.8 H (11.1-14.7) Seconds INR 1.1 APTT 31.9 (22.3-36.8) Seconds Sodium 138 (137-145) mmol/L Potassium 4.0 (3.4-5.0) mmol/L Chloride 104 (98-107) mmol/L Carbon Dioxide 24 (22-30) mmol/L Anion Gap 10 (4-12) mmol/L BUN 15 (9-20) mg/dL Creatinine 0.72 (0.7-1.3) mg/dL Estim Creat Clear Calc 148 ml/min Estimated GFR > 60 (59 - ) Glucose 109 (65-110) mg/dL Calcium 9.0 (8.4-10.2) mg/dL Total Bilirubin 0.8 (0.2-1.3) mg/dL AST 31 (17-59) U/L ALT 58 H (6-50) U/L Alkaline Phosphatase 68 (38-126) U/L Troponin I < 0.012 < 0.012 (0.000-0.034) ng/mL NT-Pro-B Natriuret Pep 21 (19.9-100) pg/mL Total Protein 8.0 (6.3-8.2) g/dL Albumin 4.3 (3.5-5.1) g/dL Lipase 67 (23-300) U/L Urine Color Yellow (Yellow) Urine Appearance Cloudy H (Clear) Urine pH 7.5 (5.0-9.0) Ur Specific [place] 1.025 (1.001-1.035) Urine Protein Negative (Negative) mg/dL Urine Glucose (UA) Negative (Negative) mg/dL Urine Ketones Negative (Negative) mg/dL Ur Blood (Man) Negative (Negative) Urine Nitrate Negative (Negative) Urine Bilirubin Negative (Negative) Urine Urobilinogen 1.0 (<2.0) mg/dL Leukocyte Esterase Rfl Negative (Negative) EZRA/UL Urine RBC 0-2 (0-2) /hpf Urine WBC 0-5 (0-3) /hpf Ur Squamous Epith Cells None seen (Few) /hpf Urine Bacteria None seen /hpf Urine Casts 0-2 Urine Opiates Screen Negative (Negative) Urine Methadone Screen Negative (Negative) Ur Barbiturates Screen Negative (Negative) Ur Phencyclidine Scrn Negative (Negative) Ur Amphetamine Screen Negative (Negative) U Benzodiazepines Scrn Negative (Negative) Urine Cocaine Screen Negative (Negative) U Cannabinoids Screen Negative (Negative) Discharge Plan Discharge Clinical Impression: Atypical chest pain, Abdominal pain Patient Disposition: Home, Self-Care Condition: Stable Instructions: Antibiotic Form, Chest Pain (ED), Abdominal Pain (ED) Additional Instructions: Please follow-up with the GI doctor you were provided with today regarding your abdominal pain, call tomorrow to set up a follow-up appointment. You also instructed to follow-up with your family doctor within the next 3-5 days and return to the emergency department if any new or worsening symptoms develop. Patient Language: Gabonese Follow-up/Referrals: PHYSICIAN NOT ON STAFF,NONSTAFF [Primary Care Provider] - Mc Doshi MD [Physician] - 3 Days Time of Disposition: 04:43
[2024-07-31] MEDS: FAMOTIDINE 20 MG/2 ML VIAL IV PUSH (02:45)
[2024-07-31 02:59] LABS: Add Urine Microscopic? YES; Appearance Urine Cloudy (Clear); Bacteria Urine None Seen /hpf; Bilirubin Urine Negative (Negative); Blood Urine Negative (Negative); Color Urine Yellow (Yellow); Glucose Urine UA Negative (Negative); Ketones Urine Negative (Negative); Leukocyte Esterase Ur Negative LEU/UL (Negative); Nitrate Urine Negative (Negative); Non Pathogenic Casts 0-2; Protein Urine Negative (Negative); RBC Urine 0-2 /hpf (0-2); Specific Grav Ur 1.025 (1.001-1.035); Squamous Epithelial Cell Urine None Seen /hpf (Few); WBC Urine 0-5 /hpf (0-3); pH Urine 7.5 (5.0-9.0)
[2024-07-31 03:10] LABS: Amphetamine Screen Urine Negative (Negative); Barbiturate Screen Urine Negative (Negative); Benzodiazepines Screen Urine Negative (Negative); Cannabinoid Screen Urine Negative (Negative); Cocaine Screen Urine Negative (Negative); Methadone Screen Urine Negative (Negative); Opiate Screen Urine Negative (Negative); Phencyclidine Screen Urine Negative (Negative)
[2024-07-31 03:44] LABS: NT Pro B Type Natriuretic Pept 21 pg/mL (19.9-100)
--- NOTE | 2024-07-31 03:46 | ECG_ITS ---
Test Date: 2024-07-31 03:48:36 Measurements Intervals [place] Rate: 77 P: 51 OK: 196 QRS: 66 QRSD: 89 T: 29 QT: 340 QTc: 385 Interpretive Statements SINUS RHYTHM ST ELEVATION, PROBABLY EARLY REPOLARIZATION [ST ELEVATION WITH NORMALLY INFLECTED T WAVE] NONSPECIFIC T-WAVE ABNORMALITY Compared to ECG 07/31/2024 00:45:50 NO SIGNIFICANT CHANGES Electronically Signed On 07-31-2024 14:51:08 CDT by Paul Jnoes M.D.
[2024-07-31 04:27] LABS: Troponin I < 0.012 ng/mL (0.000-0.034)
[2024-07-31 05:49] VITALS: BP 137/76; PULSE 68; RESP 16; O2SAT 98
== END 2024-07-31 05:50 | disposition home or self-care (01) ==
PROVIDERS: Emergency Provider Emergency Medicine
DX: R07.89 Other chest pain (principal); R10.33 Periumbilical pain
CPT/HCPCS: 36415; 71045; 74177; 80053; 80307; 81001; 83690; 83880; 84484; 85025; 85610; 85730; 93005; 96361; 96374; 99284; J7030; Q9967